=== PATIENT | female | born 1985 | race Caucasian/White ===

== ENCOUNTER 2020-04-08 11:44 | Emergency (ER) | payer OTHER, SELFPAY ==
[2020-04-08 13:07] VITALS: BP 131/82; PULSE 83; RESP 16; TEMP 37.6; O2SAT 100; BMI 27.4
--- NOTE | 2020-04-08 13:15 | XR_ITS ---
EXAMINATION: XR CHEST CLINICAL INFORMATION: Shortness of breath. COMPARISON: None TECHNIQUE: Frontal view of the chest was obtained. FINDINGS: No significant abnormality is noted involving the heart, lungs, mediastinum, bony thorax or soft tissues. XR/XR chest 1V IMPRESSION: No acute cardiopulmonary process.
--- NOTE | 2020-04-08 13:24 | ED.SOB ---
HPI - SOB/Dyspnea General Chief Complaint: Dyspnea Stated Complaint: sob Time Seen by Provider: 04/08/20 13:14 Source: patient Mode of arrival: ambulatory Limitations: no limitations History of Present Illness HPI Narrative: 34 y/o female with no PMH presenting with chest tightness and difficulty breathing since last night. She was seen at [facility] last night/this morning, reportedly had blood work done and was tested for COVID, results still pending. She states she has these episodes of feeling like her head is on fire, she is very short of breath and feels generally unwell. She described chest tightness only present with deep inspiration. She denies cough, sick contacts, abd pain, N/V/D, urinary symptoms. MD elicited complaint: shortness of breath Onset (ago): day(s) (1) Timing: intermittent Severity: moderate Exacerbating factors: inspiration Relieving factors: cool air Associated symptoms: pain with inspiration and sense of impending doom Treatment prior to arrival: none Related Data Previous Rx's Medication Instructions Recorded albuterol sulfate 2 puff INHALATION Q6H PRN #6.7 g 04/08/20 naproxen 500 mg PO BID PRN #20 tab 04/08/20 Allergies Allergy/AdvReac Type Severity Reaction Status Date / Time clindamycin Allergy Rash Verified 04/08/20 13:11 Latex, Natural Rubber Allergy Facial Verified 04/08/20 13:11 Swelling Review of Systems Review of Systems: Constitutional: + Fever, + Chills ENT/Mouth: No sore throat, No Rhinorrhea, No Swallowing Difficulty Eyes: No Eye Pain, No Swelling, No Redness Cardiovascular: + Chest Pain, + SOB, No Orthopnea, No Edema Respiratory: No Cough, No Sputum, No Wheezing, + dyspnea Gastrointestinal: No Nausea, No Vomiting, No Diarrhea, No abdominal Pain Genitourinary: No Dysuria, No Urinary Frequency, No Hematuria Musculoskeletal: No joint pain, + Myalgias Skin: No Skin Lesions, No rash Neuro: No Weakness, No Numbness, No Dizziness, + Headache Psych: + Anxiety/Panic, No Depression Heme/Lymph: No Bruising, No Lymphadenopathy Endocrine: No Polyuria, No Polydipsia PMFSH Past Medical History Attestation statement: The following information was validated with the patient. Medical History Patient denies significant medical history Social History Social History Advance Directives: No Advance Directives Information Provided: No Physical Exam Vital Signs: Vital Signs: Last Vital Signs Temp 99.7 F 04/08/20 13:07 Pulse 83 04/08/20 13:07 Resp 16 04/08/20 13:07 BP 131/82 04/08/20 13:07 Pulse Ox 100 04/08/20 13:07 Body Mass Index 27.4 Appearance: Alert. Oriented X3. No acute distress. Anxious Eyes: Pupils equal, round and reactive to light. ENT: Pharynx normal. Neck: Normal inspection. Neck supple. CVS: Normal heart rate and rhythm. Pulses normal. Respiratory: No respiratory distress. Breath sounds normal. Speaking in full sentences. Abdomen: Soft and nontender. +BS x4 Skin: Skin warm and dry. Normal skin color. Normal skin turgor. No rashes. Extremities: No lower extremity edema. Neuro: Oriented X 3. No motor deficit. No sensory deficit. Course Course Course Narrative: 34 y/o healthy female presenting with diffiuclty breathing and chest tightness since last night. Recently evaluated at [facility] - attempting to get records now. She is saying she is having a hard time breathing, speaking in full sentences. SpO2 99% and lungs are clear. She wants to be in room, out of the hallway and wants to be evaluated for everything. CXR is normal. Will get basic blood work and resp panel. She is in no distress and appears well. Doubt PE, no risk factors and no hypoxia or tachycardia. PERC score is 0. Reevaluation(s) Reevaluation #1: Workup is unremakrable including resp panel, CXR, EKG, troponin, CBC and chemistry. Records from other ER's were reviewed - she has been to 3 ERs with the same complaints and negative workup. It is suspected that her subjective difficulty breathing is anxiety related. She is vitally stable and stable for discharge. Reevaluation #2: Patient is refusing to leave the emergency department. She says she cannot go home with chest pain and not feeling good. She is requesting admission to the hospital. Discussed admission criteria and how she does not meet criteria for admission. It was discussed at length that she is medically cleared for discharge and she continues to refuse to leave. Will have [facility]N evaluate her for anxiety and mental health evaluation. Reevaluation #3: Patient briefly spoke with CARE team SW and admitted to increased life stressors and anxiety and then quickly stated her problems were medical and she didn't want to argue. She would not engage in full mental health evaluation. Dr. Hyde discussed results with patient and again how no admission is indicated at this time. She is now agreeable to discharge and states she will go to another hospital for further evaluation. She is stable for discharge. Consultations Consultation #1: CARE team MDM - SOB/Dyspnea Lab Data Attestation: I reviewed the patient's lab results. Result diagrams: 04/08/20 14:24 04/08/20 14:24 Labs: Lab Results 04/08/20 04/08/20 04/08/20 Range/Units 14:18 14:23 14:23 WBC (4.8-10.8) X10*3/uL RBC (4.20-5.50) X10*6/uL Hgb (12.0-16.0) g/dl Hct (37-47) % MCV (80-98) fL MCH (27.0-33.0) pg MCHC (31.0-35.0) g/dl RDW (11.0-16.0) % Plt Count (160-400) X10*3/uL MPV (9.4-12.3) fL Immature Gran % (Auto) (0.0-0.4) % Neut % (Auto) (45-73) % Lymph % (Auto) (20-40) % Wayne % (Auto) (2-11) % Eos % (Auto) (0-4) % Baso % (Auto) (0-2) % Lymph # (Auto) (1.2-4.9) X10*3/uL Wayne # (Auto) (0.1-1.2) X10*3/uL Eos # (Auto) (0.0-0.4) X10*3/uL Baso # (Auto) (0.0-0.2) X10*3/uL Abs Immat Gran (auto) (0.00-0.03) X10*3/uL Absolute Neuts (auto) (2.0-8.3) X10*3/uL Absolute Nucleated RBC (0.0-0.012) X10*3/uL Nucleated RBC % (auto) (0.0-0.2) /100WBC Hold Blue Top SEE NOTE Sodium (135-145) mmol/L Potassium (3.3-5.1) mmol/l Chloride (96-108) mmol/L Carbon Dioxide (22-29) mmol/L Anion Gap (12-20) BUN (9-16) mg/dL Creatinine (0.5-1.4) mg/dL Estim Creat Clear Calc Estimated GFR Random Glucose (60-115) mg/dL Calcium (8.4-10.2) mg/dL Magnesium (1.6-2.6) mg/dL Troponin I High Sens (<3.5-17.0) ng/L C-Reactive Protein 0.89 H (< or = 0.50) mg/dL Ethyl Alcohol mg/dL Coronavirus (PCR) NEGATIVE (Negative) Influenza Type A (PCR) NEGATIVE (Negative) Influenza Type B (PCR) NEGATIVE (Negative) RSV RNA Qual (PCR) NEGATIVE (Negative) 04/08/20 04/08/20 04/08/20 Range/Units 14:23 14:24 14:24 WBC 11.5 H (4.8-10.8) X10*3/uL RBC 4.82 (4.20-5.50) X10*6/uL Hgb 11.7 L (12.0-16.0) g/dl Hct 37.2 (37-47) % MCV 77.2 L (80-98) fL MCH 24.3 L (27.0-33.0) pg MCHC 31.5 (31.0-35.0) g/dl RDW 17.7 H (11.0-16.0) % Plt Count 517 H (160-400) X10*3/uL MPV 8.8 L (9.4-12.3) fL Immature Gran % (Auto) 0.5 H (0.0-0.4) % Neut % (Auto) 70.7 (45-73) % Lymph % (Auto) 20.1 (20-40) % Wayne % (Auto) 8.0 (2-11) % Eos % (Auto) 0.4 (0-4) % Baso % (Auto) 0.3 (0-2) % Lymph # (Auto) 2.3 (1.2-4.9) X10*3/uL Wayne # (Auto) 0.9 (0.1-1.2) X10*3/uL Eos # (Auto) 0.1 (0.0-0.4) X10*3/uL Baso # (Auto) 0.0 (0.0-0.2) X10*3/uL Abs Immat Gran (auto) 0.06 H (0.00-0.03) X10*3/uL Absolute Neuts (auto) 8.1 (2.0-8.3) X10*3/uL Absolute Nucleated RBC 0.000 (0.0-0.012) X10*3/uL Nucleated RBC % (auto) 0.0 (0.0-0.2) /100WBC Hold Blue Top Sodium 138 (135-145) mmol/L Potassium 3.6 (3.3-5.1) mmol/l Chloride 104 (96-108) mmol/L Carbon Dioxide 23 (22-29) mmol/L Anion Gap 15 (12-20) BUN 6 L (9-16) mg/dL Creatinine 0.57 (0.5-1.4) mg/dL Estim Creat Clear Calc 129.5 Estimated GFR > 60 Random Glucose 74 (60-115) mg/dL Calcium 9.3 (8.4-10.2) mg/dL Magnesium 2.2 (1.6-2.6) mg/dL Troponin I High Sens (<3.5-17.0) ng/L C-Reactive Protein (< or = 0.50) mg/dL Ethyl Alcohol < 10 mg/dL Coronavirus (PCR) (Negative) Influenza Type A (PCR) (Negative) Influenza Type B (PCR) (Negative) RSV RNA Qual (PCR) (Negative) 04/08/20 Range/Units 14:24 WBC (4.8-10.8) X10*3/uL RBC (4.20-5.50) X10*6/uL Hgb (12.0-16.0) g/dl Hct (37-47) % MCV (80-98) fL MCH (27.0-33.0) pg MCHC (31.0-35.0) g/dl RDW (11.0-16.0) % Plt Count (160-400) X10*3/uL MPV (9.4-12.3) fL Immature Gran % (Auto) (0.0-0.4) % Neut % (Auto) (45-73) % Lymph % (Auto) (20-40) % Wayne % (Auto) (2-11) % Eos % (Auto) (0-4) % Baso % (Auto) (0-2) % Lymph # (Auto) (1.2-4.9) X10*3/uL Wayne # (Auto) (0.1-1.2) X10*3/uL Eos # (Auto) (0.0-0.4) X10*3/uL Baso # (Auto) (0.0-0.2) X10*3/uL Abs Immat Gran (auto) (0.00-0.03) X10*3/uL Absolute Neuts (auto) (2.0-8.3) X10*3/uL Absolute Nucleated RBC (0.0-0.012) X10*3/uL Nucleated RBC % (auto) (0.0-0.2) /100WBC Hold Blue Top Sodium (135-145) mmol/L Potassium (3.3-5.1) mmol/l Chloride (96-108) mmol/L Carbon Dioxide (22-29) mmol/L Anion Gap (12-20) BUN (9-16) mg/dL Creatinine (0.5-1.4) mg/dL Estim Creat Clear Calc Estimated GFR Random Glucose (60-115) mg/dL Calcium (8.4-10.2) mg/dL Magnesium (1.6-2.6) mg/dL Troponin I High Sens < 3.5 (<3.5-17.0) ng/L C-Reactive Protein (< or = 0.50) mg/dL Ethyl Alcohol mg/dL Coronavirus (PCR) (Negative) Influenza Type A (PCR) (Negative) Influenza Type B (PCR) (Negative) RSV RNA Qual (PCR) (Negative) ECG Data Attestation: I personally reviewed and interpreted this ECG as follows: ECG interpretation date: 04/08/20 ECG interpretation time: 14:35 Interpretation: normal sinus rhythm, HR 79 bpm, normal QTc, normal KS interval. no ischemic changes. Discharge Plan Discharge Clinical Impression: Anxiety Patient Disposition: Home, Self-Care Instructions: Costochondritis (ED), Anxiety (ED) Additional Instructions: Your workup today in the Emergency Department was unremarkable. Your chest x-ray was normal. Your were tested for COVID-19, Influenza and RSV - all were NEGATIVE. You had a normal EKG. All blood work was normal. Your vitals signs were normal including normal respiratory rate and oxygen level. It is likely that your chest tightness and feeling of difficulty breathing are anxiety related. You also may have an acute viral syndrome that can explain your other symptoms. Take over the counter cold/flu medications as needed for your symptoms. Rest and stay hydrated. Follow up with your doctor this week. Prescriptions: New albuterol sulfate 90 mcg/actuation HFA aerosol inhaler 2 puff inhalation Q6H PRN (Reason: shortness of breath or wheezing) Qty: 6.7 RF: 0 naproxen 500 mg tablet 500 mg PO BID PRN (Reason: pain) Qty: 20 RF: 0
--- NOTE | 2020-04-08 14:04 | ECG_ITS ---
Test Reason : SOB Blood Pressure : / mmHG Vent. Rate : 079 BPM Atrial Rate : 079 BPM P-R Int : 130 ms QRS Dur : 086 ms QT Int : 382 ms P-R-T Axes : 043 043 027 degrees QTc Int : 438 ms Normal sinus rhythm Normal ECG No previous ECGs available Referred By: Beatriz Rogel Electronically Signed By:EULA URBINA
[2020-04-08 14:29] LABS: MANUAL DIFF FLAG NO
[2020-04-08 14:31] LABS: Basophils Percent Auto 0.3 % (0-2); Eosinophils Absolute Auto 0.1 X10*3/uL (0.0-0.4); Eosinophils Percent Auto 0.4 % (0-4); Hematocrit 37.2 % (37-47); Hemoglobin 11.7 g/dl (12.0-16.0); Imm Gran Abs Auto 0.06 X10*3/uL (0.00-0.03); Imm Gran Pct Auto 0.5 % (0.0-0.4); Lymphocytes Absolute Auto 2.3 X10*3/uL (1.2-4.9); Lymphocytes Percent Auto 20.1 % (20-40); Mean Corpuscular HGB Conc 31.5 g/dl (31.0-35.0); Mean Corpuscular Hemoglobin 24.3 pg (27.0-33.0); Mean Corpuscular Volume 77.2 fL (80-98); Mean Platelet Volume 8.8 fL (9.4-12.3); Monocytes Absolute Auto 0.9 X10*3/uL (0.1-1.2); Neutrophils Absolute Auto 8.1 X10*3/uL (2.0-8.3); Neutrophils Percent Auto 70.7 % (45-73); Platelet Count 517 X10*3/uL (160-400); Red Blood Count 4.82 X10*6/uL (4.20-5.50); Red Cell Distribution Width 17.7 % (11.0-16.0); White Blood Count 11.5 X10*3/uL (4.8-10.8)
[2020-04-08 15:10] LABS: Ethanol < 10 mg/dL
[2020-04-08 15:11] LABS: Troponin-I High Sensitivity < 3.5 ng/L (<3.5-17.0)
[2020-04-08 15:13] LABS: C Reactive Protein 0.89 mg/dL (< or = 0.50)
[2020-04-08 15:13] LABS: Anion Gap 15 (12-20); Blood Urea Nitrogen 6 mg/dL (9-16); Calcium 9.3 mg/dL (8.4-10.2); Carbon Dioxide 23 mmol/L (22-29); Chloride 104 mmol/L (96-108); Creatinine Clr Calc Pharmacy 129.5; Estimated Glomerular Filt Rate > 60; Glucose Random 74 mg/dL (60-115); Magnesium 2.2 mg/dL (1.6-2.6); Potassium 3.6 mmol/l (3.3-5.1); Sodium 138 mmol/L (135-145)
[2020-04-08 15:22] LABS: Influenza A PCR NEGATIVE (Negative); Influenza B PCR NEGATIVE (Negative); Resp Syncy Virus RNA Qual PCR NEGATIVE (Negative); SARS COV2 PCR INHOUSE NEGATIVE (Negative)
--- NOTE | 2020-04-08 16:55 | PC.NURSE ---
PROVIDER WOULD LIKE THIS PT TO BE SEEN BY CARE/BHN FOR ONGOING ANXIETY AND HYPER FOCUS ON HER CHEST PAIN PT HAS SEEN AND BEEN TREATED AT >2 FACILITIES FOR THE SAME PRESENTATION
== END 2020-04-08 17:25 | disposition home or self-care (01) ==
PROVIDERS: Physician Assistant; Emergency Provider Emergency Medicine Emergency Medical Services; PCP Internal Medicine
DX: F41.9 Anxiety disorder, unspecified (principal); Z20.828 Contact with and (suspected) exposure to other viral communicable diseases; M94.0 Chondrocostal junction syndrome [Tietze]; Z79.899 Other long term (current) drug therapy
CPT/HCPCS: 0241U; 36415; 71045; 80048; 80320; 83735; 84484; 85025; 86140; 93005; 99283; 99284

== ENCOUNTER 2020-04-08 19:10 | Emergency (ER) | payer SELFPAY ==
--- NOTE | 2020-04-08 | XR_ITS ---
EXAMINATION: XR CHEST CLINICAL INFORMATION: Chest pain COMPARISON: Chest x-ray earlier today at 1:16 PM TECHNIQUE: 2 views of the chest were obtained. FINDINGS: Cardiac silhouette is normal in size. The lungs are well aerated. There is no lobar consolidation. No pleural effusion or pneumothorax. No acute osseous abnormality. XR/XR chest 2V IMPRESSION: Stable examination demonstrating no acute pulmonary pathology.
[2020-04-08 20:31] VITALS: BP 119/84; PULSE 98; RESP 16; TEMP 36.8; O2SAT 99; BMI 26.5
--- NOTE | 2020-04-08 21:40 | PC.NURSE ---
Provider bedside with pt.
--- NOTE | 2020-04-08 21:44 | ED.CHESTPAIN ---
HPI - Chest Pain General Chief Complaint: Chest Pain Stated Complaint: chest pain/head pain Time Seen by Provider: 04/08/20 21:34 Source: patient and old records reviewed Mode of arrival: ambulatory Limitations: other (vague historian) History of Present Illness HPI narrative: has been seen 3 times recently for chest pain also at our facility today, no OCPs, had negative EKG, CXR, COVID, troponin - she comes back and states she has chest pain and wants more workup, my cousin had a PET scan she then talks in circles and becomes upset, blood is coming down the left side of my head. I will go to a different doctor to see what they will say. Patient is covered in numerous EKG stickers from other facilities, she also was writing in her journal which was very disorganized and not coherent from my view I asked if I could read it and she stated no and that she was leaving, I offered her to stay and be evaluated and see crisis but she refused, there was no mention of SI/HI. MD complaint: chest pain Onset (ago): day(s) (3) Timing of current episode: constant Prior episodes: No Onset: during rest and during exertion Pain location: left chest Pain radiation: none Severity: moderate Quality: sharp Relieving factors: nothing Exacerbating factors: movement Associated symptoms: other (her head is full and she feels it is hot) Treatment prior to arrival: none Related Data Previous Rx's Medication Instructions Recorded albuterol sulfate 2 puff INHALATION Q6H PRN #6.7 g 04/08/20 naproxen 500 mg PO BID PRN #20 tab 04/08/20 Allergies Allergy/AdvReac Type Severity Reaction Status Date / Time clindamycin Allergy Rash Verified 04/08/20 13:11 Latex, Natural Rubber Allergy Facial Verified 04/08/20 13:11 Swelling Review of Systems Review of Systems: ROS unable to be obtained due to agitation PMFSH Past Medical History Attestation statement: The following information was validated with the patient. Medical History Patient denies significant medical history Social History Social History (Updated 04/08/20 @ 21:48 by Michelle Hyde DO) Use of substances other than those prescribed or required for medical reasons: No Physical Exam Vital Signs: Vital Signs: Last Vital Signs Temp 98.2 F 12/30/20 20:31 Pulse 98 04/08/20 20:31 Resp 16 04/08/20 20:31 BP 119/84 04/08/20 20:31 Pulse Ox 99 04/08/20 20:31 Body Mass Index 26.5 Appearance: Alert. Oriented X3. No acute distress. writing in a journal that appears disorganized and words appeared illegible at times and repetitive Eyes: Pupils equal, round and reactive to light. ENT: Pharynx normal. Neck: Normal inspection. Neck supple. CVS: unable to examine Respiratory: No respiratory distress. Abdomen: No obvious trauma Skin: Skin warm and dry. Normal skin color. . Extremities: No lower extremity edema. Neuro: Oriented X 3. No motor deficit. Anxious MDM - Chest Pain MDM Narrative Medical decision making narrative: 34 yo female just seen here for chest pain - seems anxiety related, just had negative workup, asking for a PET scan - aware we cannot do that, became upset, unable to reach family - she states she is leaving, no mention of SI/HI Discharge Plan Discharge Clinical Impression: Atypical chest pain Patient Disposition: Home, Self-Care Instructions: Chest Pain (ED) Additional Instructions: return to ED for any worsening symptoms or concerns Prescriptions: No Action albuterol sulfate 90 mcg/actuation HFA aerosol inhaler 2 puff inhalation Q6H PRN (Reason: shortness of breath or wheezing) Qty: 6.7 RF: 0 naproxen 500 mg tablet 500 mg PO BID PRN (Reason: pain) Qty: 20 RF: 0 Referrals: Physician,Unknown [Primary Care Provider] - 2 days (please call your primary care doctor)
--- NOTE | 2020-04-08 21:46 | PC.NURSE ---
Dr Hyde at patient bedside as patient is refusing to leave. Patient had her journal which she was writing in which had very disorganized writing. Patient had long pauses when asked question regarding what testing she wanted done. Disorganized thoughts. Patient refused crisis and stated she had the right to go to another hospital. Patient has ekg stickers from different hospitals on her chest.
== END 2020-04-08 21:59 | disposition home or self-care (01) ==
LOC: HO.ED 21:51
PROVIDERS: Emergency Provider Emergency Medicine
DX: R07.89 Other chest pain (principal); F23 Brief psychotic disorder; Z79.899 Other long term (current) drug therapy
CPT/HCPCS: 71046; 99283

== ENCOUNTER 2020-04-08 22:12 | Inpatient (IN) | payer OTHER, SELFPAY ==
[2020-04-08 23:20] VITALS: BP 138/72; PULSE 80; RESP 18; TEMP 36.7; O2SAT 99; BMI 26.5
[2020-04-08 23:38] LABS: Glucose Urine UA NEG (NEG); Leukocyte Esterase Urine NEG (NEG); Nitrite Urine NEG (NEG); Specific Gravity - Urine >= 1.030 (1.005-1.025); Urine Blood NEG (NEG); Urine Ketones >=80 MG/DL (NEG); Urine Protein NEG (NEG-TRACE)
[2020-04-08 23:51] LABS: Appearance Urine HAZY; Color Urine DARK YELLOW; RBC Urine 0-2 /HPF (0); UACC CULT YES
[2020-04-08 23:52] LABS: Bacteria Urine TRACE /LPF; Mucus Urine 4+ /LPF; Squamous Epithelial Cell Urine 3+ /LPF
[2020-04-08 23:53] LABS: UPreg QC Valid YES; Urine Pregnancy NEGATIVE (NEGATIVE)
[2020-04-09] VITALS (8 sets, daily range): BP systolic 101–139; BP diastolic 81–95; PULSE 78–120; RESP 15–82; TEMP 36.2–37.1; O2SAT 95–99
--- NOTE | 2020-04-09 00:01 | MHC.CARE ---
This is pt's 3rd visit to the ED today, with somatic complaints of chest pain and difficulty breathing. Pt was at [facility] ED and [facility] ED yesterday for same reasons, and in both cases was medically cleared and escorted off the premises when pt continued to insist that there is something wrong and that she needs to be monitored. Records were requested from [facility], indicating that the clinical impression was anxiety. On pt's third presentation to our ED, pt reported that she is seeking both medical and psychological evaluation. This proposal writer spoke with pt to gather information and assess the best recommendation for evaluation and treatment. Pt presented as disorganized and responding to internal stimuli, was observed speaking quietly to herself, and had a vacant gaze and difficulty articulating sentences at times. Pt was perseverating on the time, and became anxious when her view of the nearest clock was obscured when the curtain to the room was closed. Pt reported that she has been feeling overwhelmed and anxious, however continues to disagree that her physical symptoms are caused by anxiety. Pt stated that she has a hx of inpt psych admissions at [place] and [facility], indicating that they were due to anxiety attacks. Given pt's presentation, she will be referred for [facility] crisis evaluation.
[2020-04-09 00:07] LABS: Amphetamine Screen Urine Not Detected (Not Detect); Barbiturates, Urine Not Detected (Not Detect); Benzodiazepines Screen Urine Not Detected (Not Detect); Cannabinoid Screen Urine Not Detected (Not Detect); Cocaine Screen Urine Not Detected (Not Detect); Opiate Screen Urine Not Detected (Not Detect); Phencyclidine Screen Urine Not Detected (Not Detect)
--- NOTE | 2020-04-09 01:23 | ED.PSYCH ---
HPI - Psych General Chief Complaint: Psychiatric Symptoms Stated Complaint: Crisis Time Seen by Provider: 04/08/20 23:13 Source: patient Mode of arrival: ambulatory Limitations: no limitations History of Present Illness HPI Narrative: 34-year-old female with prior history of psychosis requiring hospitalization at [facility] she has had psychiatric visits to [facility] in July were she was having auditory hallucinations admitted for acute psychosis subsequently had another visit there for psych purposes and also 1 in 2016. She has been going to multiple different ED is a in the recent several days escalating most recently here several times has had extensive workup in all these and no acute finding. She in fact was seen here earlier today for chest pain had a negative workup and seems fixated on her health. She re-presented this evening complaining of depression and wanting a ?full? psychiatric workup Patient seems very vague during interview very suspicious of her surroundings. She is not noted to be talking to herself questions or responding to internal stimuli. During my interview she denies SI or HI. Admits to vaguely being depressed. When asked her she was having auditory hallucination she initially said yes but quickly recanted this and stated she is ?a good Zoroastrianism?. Offers no medical complaints at this time. Patient was here again earlier this afternoon had a full workup that was negative. She denies SI or HI. MD complaint: feels depressed Exacerbating factors: none Treatments prior to arrival: none Related Data Previous Rx's Medication Instructions Recorded albuterol sulfate 2 puff INHALATION Q6H PRN #6.7 g 04/08/20 naproxen 500 mg PO BID PRN #20 tab 04/08/20 Allergies Allergy/AdvReac Type Severity Reaction Status Date / Time clindamycin Allergy Rash Verified 04/08/20 13:11 Latex, Natural Rubber Allergy Facial Verified 04/08/20 13:11 Swelling Review of Systems Review of Systems: Constitutional: No Weight loss, No Fever, No Chills, No Night Sweats, No Fatigue, No Malaise ENT/Mouth: No Hearing loss, No Ear Pain, No Nasal Congestion, No Sinus Pain, No Hoarseness, No sore throat, No Rhinorrhea, No Swallowing Difficulty Eyes: No Eye Pain, No Swelling, No Redness, No Foreign Body, No Discharge, No Vision Changes Cardiovascular: No Chest Pain, No SOB, No Dyspnea on Exertion, No Orthopnea, No Edema, No Palpitations Respiratory: No Cough, No Sputum, No Wheezing, No Smoke Exposure, No Dyspnea Gastrointestinal: No Nausea, No Vomiting, No Diarrhea, No Constipation, No abdominal Pain, No Hematochezia, No Melena Genitourinary: no irregular bleeding, No Dysuria, No Urinary Frequency, No Hematuria, No Urinary Incontinence, No Urgency, No Flank Pain Musculoskeletal: No joint pain, No Myalgias, No Joint Swelling Skin: No Skin Lesions, No rash Neuro: No Weakness, No Numbness, No Paresthesias, No Loss of Consciousness, No Dizziness, No Headache Psych: As noted in HPI Heme/Lymph: No Bruising, No Bleeding,No Lymphadenopathy Endocrine: No Polyuria, No Polydipsia, No Temperature Intolerance Yes all other systems are reviewed and are negative [facility] Past Medical History Medical History Patient denies significant medical history Social History Social History (Updated 04/08/20 @ 21:48 by Michelle Hyde DO) Advance Directives: No Physical Exam Vital Signs: Vital Signs: Last Vital Signs Temp 98.0 F 04/08/20 23:20 Pulse 80 04/08/20 23:20 Resp 18 04/08/20 23:20 BP 138/72 04/08/20 23:20 Pulse Ox 99 04/08/20 23:20 Body Mass Index 26.5 Reviewed Const: Other: Vague and suspicious of her surroundings General: cooperative; No acute distress or intoxicated appearing Nutritional Appearance: average body habitus Orientation/consciousness: patient oriented x3 HENMT: Head: Yes normal to inspection Ears: hearing grossly normal bilaterally Eyes: General: appearance normal, both eyes and all related structures Visual Lara: normal visual lara by confrontation Neck: Neck: Yes normal visual inspection, No positive Brudzinski's sign, No positive Kernig's sign and No tender Thyroid: Thyroid normal Chest: Chest palpation & inspection: normal inspection of the chest Resp: Effort & Inspection: normal respiratory effort Cardio: Jugular venous distension: no JVD Rhythm: regular rhythm Heart sounds: S1 normal heart sound present and S2 normal heart sound present GI: Inspection: Yes normal to inspection Percussion: Yes normal to percussion Auscultation: normal bowel sounds : General: Yes no CVA tenderness Back/Spine/Pelvis: Back: no CVA tenderness Skin: General skin exam: no rashes or lesions noted Neuro: General: patient oriented x3 Extrem: General: Yes normal to inspection Course Course Course Narrative: Interview 34-year-old female with known history of psychosis with auditory hallucinations admitted to [facility] in July has had increase and hospital visits for vague medical complaints seems to be responding to internal stimuli. Presents with vague complaint of depression but no suicidality. No illicit substance use. She had full medical workup here at this facility earlier in the day. Will recheck alcohol and U tox and obtain crisis evaluation. Reevaluation(s) Reevaluation #1: Evaluated Care team recommendation for inpatient level care. Bed search initiated Section 12 signed. MDM - Psych MDM Narrative Medical decision making narrative: 0200 Sign into night team pending placement. Differential Diagnosis Differential diagnosis: Likely acute psychosis, bipolar disorder, depression, post-traumatic stress disorder, mood disorder and schizoaffective disorder Lab Data Labs: Lab Results 04/08/20 04/08/20 Range/Units 23:29 23:29 Urine Color DARK YELLOW Urine Appearance HAZY Urine pH 6.0 (5.0-8.0) Ur Specific [place] >= 1.030 H (1.005-1.025) Urine Protein NEG (NEG-TRACE) MG/DL Urine Glucose (UA) NEG (NEG) MG/DL Urine Ketones >=80 (NEG) MG/DL Urine Blood NEG (NEG) Urine Nitrite NEG (NEG) Ur Leukocyte Esterase NEG (NEG) Urine RBC 0-2 (0) /HPF Urine WBC 5-9 H (0-4) /HPF Ur Squamous Epith Cells 3+ /LPF Urine Bacteria TRACE /LPF Urine Mucus 4+ /LPF Urine Yeast 1+ /HPF Urine Test NEGATIVE (NEGATIVE) Urine Opiates Screen Not Detected (Not Detect) Ur Barbiturates Screen Not Detected (Not Detect) Ur Phencyclidine Scrn Not Detected (Not Detect) Ur Amphetamines Screen Not Detected (Not Detect) U Benzodiazepines Scrn Not Detected (Not Detect) Urine Cocaine Screen Not Detected (Not Detect) U Marijuana (THC) Screen Not Detected (Not Detect) Discharge Plan Discharge Clinical Impression: Acute psychosis Prescriptions: No Action albuterol sulfate 90 mcg/actuation HFA aerosol inhaler 2 puff inhalation Q6H PRN (Reason: shortness of breath or wheezing) Qty: 6.7 RF: 0 naproxen 500 mg tablet 500 mg PO BID PRN (Reason: pain) Qty: 20 RF: 0
--- NOTE | 2020-04-09 02:56 | MHC.CARE ---
N unable to provide a clinician to evaluate pt until the following day. CARE team obtained collateral information from N re: past evaluations, then completed evaluation with pt. Disposition is for inpt psychiatric placement. ED provider is in agreement.
[2020-04-09 12:45] LABS: Influenza A PCR NEGATIVE (Negative); Influenza B PCR NEGATIVE (Negative); Resp Syncy Virus RNA Qual PCR NEGATIVE (Negative); SARS COV2 PCR INHOUSE NEGATIVE (Negative)
--- NOTE | 2020-04-09 13:55 | PC.NURSE ---
nurse to nurse given to uzma (rn). pt aware of plan of care for transfer to the pod, bed 01.
--- NOTE | 2020-04-09 15:16 | PC.NURSE ---
Pt complaining of dizziness and shortness of breathe. VSS, oxygen levels have been 98-99%. Pt asking to go back to main ED, states she felt better there. Verbal reassurance, pt fixated on returning to main ED.
--- NOTE | 2020-04-09 19:16 | PC.NURSE ---
Report received. PT came up to the nurse's station and complained of chest pain and shortness of breath. PT's vitals assessed and found to be slightly hypertensive and tachycardic. Provider notified and EKG was ordered.
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
[2020-04-10 06:00] VITALS: BP 126/86; PULSE 118; RESP 18; TEMP 36.3; O2SAT 99
[2020-04-10 11:00] VITALS: PULSE 88
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
[2020-04-10 17:25] VITALS: BP 127/82; PULSE 95; TEMP 36.3
[2020-04-10 23:00] VITALS: BP 120/69; PULSE 95; TEMP 36.6; O2SAT 99
[2020-04-11 04:30] VITALS: BP 114/79; PULSE 83; RESP 16; TEMP 36.8; O2SAT 100
--- NOTE | 2020-04-11 13:06 | HO.PSYCHPN ---
Subjective Subjective Date of Service: 04/11/20 Reason For Visit: Crisis Subjective Notes: Section 12B Interim History: Pt doesn't want to continue to argue- struggling with being on psychiatric unit wants to be on medical floor and have PET scan for chest pain-despite negaitve medical work up which does not indicated further investigation at this time nursing report she slept in day and was up all night Medication Compliance: No Side effects from medications: No Attending Groups: Intermittent Review of Systems Acute medical concerns: No Medical Review of Systems: unchanged Mental Status Exam Mental Status Exam Patient Appearance: Well Grooomed Patient Orientation: Person, Place, Time and Situation Level of Consciousness: Awake and Appropriate Diagnostics Vital Signs (24Hr): Vital Signs - 24 hr 04/10/20 17:25 04/10/20 23:00 04/11/20 04:30 Temperature 97.4 F 97.9 F 98.2 F Pulse Rate 95 95 83 Respiratory Rate 16 Blood Pressure 127/82 120/69 114/79 Pulse Oximetry 99 100 Body Mass Index 26.5 Medications Medications Current Medications Generic Name Dose Route Start Last Admin Trade Name Freq PRN Reason Stop Dose Admin Acetaminophen 650 mg 04/09/20 19:03 Acetaminophen 325 Mg Tablet PO Q6H PRN Headache/Pain Mild Scale (1-3) Al Hydroxide/Mg Hydroxide 30 ml 04/09/20 19:03 Magnesium Hydrox/Alum Hydrox 30 Ml Oral.Susp PO Q6H PRN Heartburn/Nausea Hydroxyzine HCl 25 mg 04/09/20 19:03 Hydroxyzine Hcl 25 Mg Tablet PO BEDTIME PRN Anxiety Lorazepam 0.5 mg 04/09/20 19:07 Lorazepam 0.5 Mg Tablet PO Q6H PRN Anxiety Magnesium Hydroxide 30 ml 04/09/20 19:03 Milk Of Magnesia 30 Ml Oral.Susp PO DAILY PRN Constipation Olanzapine 5 mg 04/09/20 19:07 Olanzapine Odt 10 Mg Tab.Rapdis TRANSLINGU RQ6H PRN Psychosis Trazodone HCl 50 mg 04/09/20 19:03 Trazodone Hcl 50 Mg Tablet PO BEDTIME PRN Insomnia Allergies Allergies Allergy/AdvReac Type Severity Reaction Status Date / Time clindamycin Allergy Rash Verified 04/08/20 13:11 Latex, Natural Rubber Allergy Facial Verified 04/08/20 13:11 Swelling Assessment & Plan Assessment & Plan (1) Acute psychosis: Status: Acute Code(s): F23 - Brief psychotic disorder Assessment and Plan: tried to educate pt about anxiety/psychosis and medications that might relieve thoughts anxiety pt doesn not understand and has no insight further hospitalization needed because pt will recurrently present thinking there is something wrong. Also unable to take care of herself due to impaired judgement likely busby of rehospiatilziation Greater than 50% of the session was spent on counseling and/or coordination of care
[2020-04-11 18:00] VITALS: BP 110/75; PULSE 124; TEMP 36.3
[2020-04-12 04:40] VITALS: BP 115/82; PULSE 91; RESP 16; TEMP 37.1; O2SAT 100
--- NOTE | 2020-04-12 13:06 | HO.PSYCHPN ---
Subjective Subjective Date of Service: 04/12/20 Reason For Visit: Crisis Subjective Notes: Section 12B Interim History: Pt wants to go home to mother and granmother, reports she will no longer pursue treatment for chest pain - which has had no findings requesting PET scan- Continues to not sleep at night but will not discuss, will also not discussed outpatient care No interest in medications for sleep or anxiety and has not insight into her thought disorder Medication Compliance: No Side effects from medications: No Attending Groups: No Review of Systems Acute medical concerns: No Review of Systems: no longer complainging of chest pain not taking fluids in day - shift- taken apparently does in pm shift Mental Status Exam Mental Status Exam Patient Appearance: Well Grooomed Patient Orientation: Person, Place, Time and Situation Level of Consciousness: Awake Patient Behavior: Guarded and Resistive to Care Mood Description: Calm Affect Description: Calm Patient Cognition Impaired: No Ability to Follow Directions: Fair Speech Pattern: Clear Hallucinations: None Delusions: Present (?somatic delusion) Thought Process: Distracted Thought Content: positive for Evasive Depressive Symptoms: Insomnia, Diff. Making Decisions and Changes in Appetite Judgement: Poor Diagnostics Vital Signs (24Hr): Vital Signs - 24 hr 04/11/20 18:00 04/12/20 04:40 Temperature 97.4 F 98.8 F Pulse Rate 124 H 91 Respiratory Rate 16 Blood Pressure 110/75 115/82 Pulse Oximetry 100 Body Mass Index 26.5 Medications Medications Current Medications Generic Name Dose Route Start Last Admin Trade Name Freq PRN Reason Stop Dose Admin Acetaminophen 650 mg 04/09/20 19:03 Acetaminophen 325 Mg Tablet PO Q6H PRN Headache/Pain Mild Scale (1-3) Al Hydroxide/Mg Hydroxide 30 ml 04/09/20 19:03 Magnesium Hydrox/Alum Hydrox 30 Ml Oral.Susp PO Q6H PRN Heartburn/Nausea Hydroxyzine HCl 25 mg 04/09/20 19:03 Hydroxyzine Hcl 25 Mg Tablet PO BEDTIME PRN Anxiety Lorazepam 0.5 mg 04/09/20 19:07 Lorazepam 0.5 Mg Tablet PO Q6H PRN Anxiety Magnesium Hydroxide 30 ml 04/09/20 19:03 Milk Of Magnesia 30 Ml Oral.Susp PO DAILY PRN Constipation Olanzapine 5 mg 04/09/20 19:07 Olanzapine Odt 10 Mg Tab.Rapdis TRANSLINGU RQ6H PRN Psychosis Trazodone HCl 50 mg 04/09/20 19:03 Trazodone Hcl 50 Mg Tablet PO BEDTIME PRN Insomnia Allergies Allergies Allergy/AdvReac Type Severity Reaction Status Date / Time clindamycin Allergy Rash Verified 04/08/20 13:11 Latex, Natural Rubber Allergy Facial Verified 04/08/20 13:11 Swelling Assessment & Plan Assessment & Plan (1) Acute psychosis: Status: Acute Code(s): F23 - Brief psychotic disorder Assessment and Plan: less thought blocked, unwilling to engage in psychiatric treatment, collateral coordination of care needed to know ture risk to self care/judegment Greater than 50% of the session was spent on counseling and/or coordination of care
[2020-04-12 18:00] VITALS: BP 112/79; PULSE 113; TEMP 36.4
--- NOTE | 2020-04-13 | CT_ITS ---
EXAMINATION: CT HEAD WITHOUT CONTRAST CLINICAL INFORMATION: Fall. Head injury. COMPARISON: None. TECHNIQUE: Contiguous helical images of the brain were obtained without IV contrast. Multiplanar reconstructions were performed. DLP: 630 mGy-cm. FINDINGS: There are no pathologic extra-axial fluid collections. The lateral, third, fourth ventricles are nondilated and concordant with the appearance of the sulci. There is no evidence for acute intraparenchymal hemorrhage or infarct. There is neither mass nor mass effect. There is no shift of midline structures. The paranasal sinuses and mastoid air cells are clear. There are no osseous lesions. CT/CT head/brain wo con IMPRESSION: No evidence for acute intracranial injury. Automated exposure control (Care Dose) Adjustment of the mA and/or kv according to patient size (this includes techniques or standardized protocols for targeted exams where dose is matched to indication / reason for exam; i.e. extremities or head).
[2020-04-13 04:50] VITALS: BP 109/77; RESP 88; TEMP 36.6; O2SAT 100
--- NOTE | 2020-04-13 17:44 | P.PNPSI_ITS ---
Subjective Subjective Date of Service: 04/13/20 Reason For Visit: Crisis Subjective Notes: Section 12B Interim History: Pt allowed a brief meeting. States there is no psychiatric issue to be worked with or treated. States she has discussed symptoms with primary care physician in the past and the only issue she has is being away from her son. Appears pre-occupied at times. Guarded. Asking for discharge. Medication Compliance: No (declines) Side effects from medications: No Attending Groups: No Review of Systems Reports behavioral changes Psychiatric: Reports as per HPI, Reports abnormal sleep pattern, Reports anxiety and Reports behavioral changes Mental Status Exam Mental Status Exam Patient Appearance: Well Grooomed and Fatigued Patient Orientation: Person, Place, Time and Situation Level of Consciousness: Awake and Alert Patient Behavior: Appropriate, Guarded, Talkative and Suspicious (preoccupied) Mood Description: Calm, Suspicious, Withdrawn, Constricted and Apprehensive Affect Description: Constricted Patient Cognition Impaired: No Ability to Follow Directions: Fair Speech Pattern: Spontaneous Speech Memory Description: Remote Impaired Hallucinations: None (denies) Delusions: Present (Question of somatic delusions) Thought Process: Distracted (preoccupied at times) and Goal Oriented (focused on discharge) Thought Content: positive for [place] and positive for Circumstantial Depressive Symptoms: Insomnia, Diff. Making Decisions and Difficulty Sleeping Judgement: Poor Diagnostics Vital Signs (24Hr): Vital Signs - 24 hr 04/12/20 18:00 04/13/20 04:50 Temperature 97.6 F 97.9 F Pulse Rate 113 H Respiratory Rate 88 H Blood Pressure 112/79 109/77 Pulse Oximetry 100 Body Mass Index 26.5 Medications Medications Current Medications Generic Name Dose Route Start Last Admin Trade Name Freq PRN Reason Stop Dose Admin Acetaminophen 650 mg 04/09/20 19:03 Acetaminophen 325 Mg Tablet PO Q6H PRN Headache/Pain Mild Scale (1-3) Al Hydroxide/Mg Hydroxide 30 ml 04/09/20 19:03 Magnesium Hydrox/Alum Hydrox 30 Ml Oral.Susp PO Q6H PRN Heartburn/Nausea Hydroxyzine HCl 25 mg 04/09/20 19:03 Hydroxyzine Hcl 25 Mg Tablet PO BEDTIME PRN Anxiety Lorazepam 0.5 mg 04/09/20 19:07 Lorazepam 0.5 Mg Tablet PO Q6H PRN Anxiety Magnesium Hydroxide 30 ml 04/09/20 19:03 Milk Of Magnesia 30 Ml Oral.Susp PO DAILY PRN Constipation Olanzapine 5 mg 04/09/20 19:07 Olanzapine Odt 10 Mg Tab.Rapdis TRANSLINGU RQ6H PRN Psychosis Trazodone HCl 50 mg 04/09/20 19:03 Trazodone Hcl 50 Mg Tablet PO BEDTIME PRN Insomnia Allergies Allergies Allergy/AdvReac Type Severity Reaction Status Date / Time clindamycin Allergy Rash Verified 04/08/20 13:11 Latex, Natural Rubber Allergy Facial Verified 04/08/20 13:11 Swelling Assessment & Plan Assessment & Plan (1) Acute psychosis: Status: Acute Code(s): F23 - Brief psychotic disorder Assessment and Plan: -Pt declines intervention at this time. Greater than 50% of the session was spent on counseling and/or coordination of care Patient educated on: medication risk/benefits and therapeutic strategies Informed Consent: further education needed Reason for contiued inpatient stay Substantial Risk for: inability to function and rapid decompensation
[2020-04-13 18:00] VITALS: BP 128/90; PULSE 90; TEMP 36.8
[2020-04-13 21:15] VITALS: BP 131/87; PULSE 89; RESP 16; O2SAT 100
[2020-04-13 22:31] VITALS: BP 113/77; PULSE 91; O2SAT 100
[2020-04-13 22:32] LABS: Basophils Absolute Auto 0.1 X10*3/uL (0.0-0.2); Basophils Percent Auto 0.5 % (0-2); Eosinophils Absolute Auto 0.1 X10*3/uL (0.0-0.4); Hematocrit 39.1 % (37-47); Hemoglobin 12.1 g/dl (12.0-16.0); Imm Gran Abs Auto 0.05 X10*3/uL (0.00-0.03); Imm Gran Pct Auto 0.5 % (0.0-0.4); Lymphocytes Absolute Auto 1.4 X10*3/uL (1.2-4.9); Lymphocytes Percent Auto 13.8 % (20-40); MANUAL DIFF FLAG NO; Mean Corpuscular HGB Conc 30.9 g/dl (31.0-35.0); Mean Corpuscular Hemoglobin 24.3 pg (27.0-33.0); Mean Corpuscular Volume 78.5 fL (80-98); Mean Platelet Volume 9.1 fL (9.4-12.3); Monocytes Absolute Auto 0.8 X10*3/uL (0.1-1.2); Monocytes Percent Auto 7.9 % (2-11); Neutrophils Absolute Auto 7.8 X10*3/uL (2.0-8.3); Neutrophils Percent Auto 76.3 % (45-73); Platelet Count 568 X10*3/uL (160-400); Red Blood Count 4.98 X10*6/uL (4.20-5.50); Red Cell Distribution Width 17.9 % (11.0-16.0); White Blood Count 10.2 X10*3/uL (4.8-10.8)
[2020-04-13 23:08] LABS: Anion Gap 12 (12-20); Blood Urea Nitrogen 6 mg/dL (9-16); Carbon Dioxide 31 mmol/L (22-29); Chloride 100 mmol/L (96-108); Creatinine Clr Calc Pharmacy 117.2; Estimated Glomerular Filt Rate > 60; Potassium 3.6 mmol/l (3.3-5.1); Sodium 139 mmol/L (135-145)
--- NOTE | 2020-04-13 23:19 | PC.NURSE ---
Patient was in the kitchen when she fell and hit her head arond 2114. Patient was prompted several times prior to go to her room and get rest, for she was nodding off and repeatedly closing her eyes. However, she declined to do so. The fall was unwitnessed by any staff. However, it was definitely heard. 514 witnessed her fall and described her to be falling asleep and her body just kept going lower and lower and then bam! Patient got right up and was prompted to sit down. Vitals were taken and WNL. Denied any dizziness or nausea. She rated her pain a 8/10 on her right latter-day. TW lightly palpated for a lump - none noted. No bleeding. A neuro check was done by staff. The hospitalist was notified Dr. Lebron about the incident (2126) and ordered a CT scan w/out contrast and findings were WNL. Dr. Briones was notified of the incident (2134)- labs were ordered and neuro checks Q4 x 24 hr. Originally she was switched to 5 minute checks. However, patient has been difficult re-direct and wanting to sit in the milieu with everyone. I just feel so uncomfortable and need to sit with everyone . When asked what makes her feel uncomfortable she replied It is a spiritual and medical thing and would not elaborate further. Placed on 1:1 for safety. Nursing supervisor uranium processing notified of incident. Patient continues to nod off in a chair with her 1:1. Patient had not ate or drank anything for dinner this shift although prompted.
[2020-04-14 05:25] VITALS: BP 118/75; PULSE 105; RESP 16; TEMP 36.3; O2SAT 100
[2020-04-14 13:48] VITALS: BP 117/60; PULSE 96; TEMP 36.8; O2SAT 100
[2020-04-14 13:49] VITALS: BP 121/79; PULSE 91; TEMP 36.8; O2SAT 97
--- NOTE | 2020-04-14 16:15 | HO.PSYCHPN ---
Subjective Subjective Date of Service: 04/14/20 Reason For Visit: Crisis Subjective Notes: Section 12B Interim History: Pt fell last night after falling asleep in the chair. CAT Scan WNL. Continues with voodoo preoccupation. Poor sleep and appetite. Guarded, Quiet, Isolative-explains she wants to be at home with family, son-age 11 and mother. Documenting time in a journal. Refused to allow a call to her mother and refused to allow team to have mother's contact number. Pt's social worker aide offered to call with pt present, however, she continued to decline. Section XIIB expires 04/15/20. Refuses medications. Olanzapine scheduled for pt for this evening. Review of Systems Review of Systems Yes Unobtainable due to mental status Reports behavioral changes Psychiatric: Reports abnormal sleep pattern, Reports behavioral changes, Reports change in appetite and Reports paranoia Mental Status Exam Mental Status Exam Patient Appearance: Appropriate Patient Orientation: Person, Place and Situation Level of Consciousness: Alert Patient Behavior: Guarded, Passive, Suspicious, Anxious, Fearful, Resistive to Care, Avoidant, Fatigued and Good Eye Contact Mood Description: Suspicious, Withdrawn and Apprehensive Affect Description: Suspicious and Constricted Patient Cognition Impaired: Yes Ability to Follow Directions: Fair Speech Pattern: Spontaneous Speech Memory Description: Remote Impaired, Retrieval Specialist Impaired and Episodic Impaired Hallucinations: None (denies, however questionable) Delusions: Paranoid Ideation and Present Thought Process: Illogical and Evasive Thought Content: positive for [place], positive for Circumstantial, positive for Perseveration, positive for Evasive and positive for Hypochondriasis Depressive Symptoms: Insomnia, Difficulty Sleeping and Changes in Appetite Judgement: Poor Diagnostics Vital Signs (24Hr): Vital Signs - 24 hr 04/13/20 18:00 04/13/20 21:15 04/13/20 22:31 Temperature 98.3 F Pulse Rate 90 89 91 Respiratory Rate 16 Blood Pressure 128/90 H 131/87 113/77 Pulse Oximetry 100 100 04/14/20 05:25 04/14/20 13:48 04/14/20 13:49 Temperature 97.4 F 98.2 F 98.2 F Pulse Rate 105 H 96 91 Respiratory Rate 16 Blood Pressure 118/75 117/60 121/79 Pulse Oximetry 100 100 97 Body Mass Index 26.5 Labs Results: 04/13/20 22:24 04/13/20 22:24 Labs: Laboratory Results - last 48 hr 04/13/20 04/13/20 22:24 22:24 WBC 10.2 RBC 4.98 Hgb 12.1 Hct 39.1 MCV 78.5 L MCH 24.3 L MCHC 30.9 L RDW 17.9 H Plt Count 568 H MPV 9.1 L Immature Gran % (Auto) 0.5 H Neut % (Auto) 76.3 H Lymph % (Auto) 13.8 L [place] % (Auto) 7.9 Eos % (Auto) 1.0 Baso % (Auto) 0.5 Lymph # (Auto) 1.4 [place] # (Auto) 0.8 Eos # (Auto) 0.1 Baso # (Auto) 0.1 Abs Immat Gran (auto) 0.05 H Absolute Neuts (auto) 7.8 Absolute Nucleated RBC 0.000 Nucleated RBC % (auto) 0.0 Sodium 139 Potassium 3.6 Chloride 100 Carbon Dioxide 31 H Anion Gap 12 BUN 6 L Creatinine 0.62 Estim Creat Clear Calc 117.2 Estimated GFR > 60 Imaging Radiology Impressions: ITS Impressions Head CT 04/13/20 00:00 IMPRESSION: No evidence for acute intracranial injury. Automated exposure control (Care Dose) Adjustment of the mA and/or kv according to patient size (this includes techniques or standardized protocols for targeted exams where dose is matched to indication / reason for exam; i.e. extremities or head). Medications Medications Current Medications Generic Name Dose Route Start Last Admin Trade Name Freq PRN Reason Stop Dose Admin Acetaminophen 650 mg 04/09/20 19:03 Acetaminophen 325 Mg Tablet PO Q6H PRN Headache/Pain Mild Scale (1-3) Al Hydroxide/Mg Hydroxide 30 ml 04/09/20 19:03 Magnesium Hydrox/Alum Hydrox 30 Ml Oral.Susp PO Q6H PRN Heartburn/Nausea Hydroxyzine HCl 25 mg 04/09/20 19:03 Hydroxyzine Hcl 25 Mg Tablet PO BEDTIME PRN Anxiety Lorazepam 0.5 mg 04/09/20 19:07 Lorazepam 0.5 Mg Tablet PO Q6H PRN Anxiety Magnesium Hydroxide 30 ml 04/09/20 19:03 Milk Of Magnesia 30 Ml Oral.Susp PO DAILY PRN Constipation Olanzapine 5 mg 04/09/20 19:07 Olanzapine Odt 10 Mg Tab.Rapdis TRANSLINGU RQ6H PRN Psychosis Olanzapine 10 mg 04/14/20 21:00 Olanzapine 10 Mg Tablet PO BEDTIME EDGARDO Trazodone HCl 50 mg 04/09/20 19:03 Trazodone Hcl 50 Mg Tablet PO BEDTIME PRN Insomnia Allergies Allergies Allergy/AdvReac Type Severity Reaction Status Date / Time clindamycin Allergy Rash Verified 04/08/20 13:11 Latex, Natural Rubber Allergy Facial Verified 04/08/20 13:11 Swelling Assessment & Plan Assessment & Plan (1) Acute psychosis: Status: Acute Code(s): F23 - Brief psychotic disorder Assessment and Plan: Pt continues to refuse treatment. Section XIIB expires on 04/15/20. Will plan to file Greater than 50% of the session was spent on counseling and/or coordination of care Patient educated on: therapeutic strategies Informed Consent: does not understand Reason for contiued inpatient stay Substantial Risk for: inability to function, rapid decompensation and med/psych decompensation
[2020-04-14 18:00] VITALS: BP 123/87; PULSE 93; TEMP 36.2
[2020-04-15 06:00] VITALS: BP 129/93; PULSE 88; TEMP 36.7
[2020-04-15 08:00] VITALS: BMI 23.7
[2020-04-15 18:00] VITALS: BP 117/62; PULSE 85; TEMP 36.3
--- NOTE | 2020-04-15 18:51 | HO.PSYCHPN ---
Subjective Subjective Date of Service: 04/15/20 Reason For Visit: Crisis Interim History: Pt declines treatment. Filed for civil commitment today. Medication Compliance: No Side effects from medications: No (na) Attending Groups: No Review of Systems Review of Systems Yes Unobtainable due to mental status Reports behavioral changes Psychiatric: Reports abnormal sleep pattern, Reports behavioral changes, Reports change in appetite, Reports difficulty concentrating, Reports panic attacks (per mother's report to social group worker) and Reports paranoia Mental Status Exam Mental Status Exam Patient Appearance: Fatigued Patient Orientation: Person and Place Level of Consciousness: Awake Patient Behavior: Guarded, Suspicious, Anxious, Fearful and Confused Mood Description: Withdrawn, Fearful, Anxious and Apprehensive Affect Description: Constricted Patient Cognition Impaired: Yes Ability to Follow Directions: Poor Speech Pattern: Spontaneous Speech, Soft-Spoken and Cofabulation Memory Description: Remote Impaired Delusions: Being Controlled, Paranoid Ideation and Present (pentecostalism focus) Thought Content: positive for [place], positive for Circumstantial and positive for Perseveration Depressive Symptoms: Insomnia, Difficulty Sleeping and Changes in Appetite Judgement: Poor Diagnostics Vital Signs (24Hr): Vital Signs - 24 hr 04/15/20 06:00 Temperature 98.1 F Pulse Rate 88 Blood Pressure 129/93 H Body Mass Index 26.5 Labs Results: 04/13/20 22:24 04/13/20 22:24 Labs: Laboratory Results - last 48 hr 04/13/20 04/13/20 22:24 22:24 WBC 10.2 RBC 4.98 Hgb 12.1 Hct 39.1 MCV 78.5 L MCH 24.3 L MCHC 30.9 L RDW 17.9 H Plt Count 568 H MPV 9.1 L Immature Gran % (Auto) 0.5 H Neut % (Auto) 76.3 H Lymph % (Auto) 13.8 L [place] % (Auto) 7.9 Eos % (Auto) 1.0 Baso % (Auto) 0.5 Lymph # (Auto) 1.4 [place] # (Auto) 0.8 Eos # (Auto) 0.1 Baso # (Auto) 0.1 Abs Immat Gran (auto) 0.05 H Absolute Neuts (auto) 7.8 Absolute Nucleated RBC 0.000 Nucleated RBC % (auto) 0.0 Sodium 139 Potassium 3.6 Chloride 100 Carbon Dioxide 31 H Anion Gap 12 BUN 6 L Creatinine 0.62 Estim Creat Clear Calc 117.2 Estimated GFR > 60 Imaging Radiology Impressions: ITS Impressions Head CT 04/13/20 00:00 IMPRESSION: No evidence for acute intracranial injury. Automated exposure control (Care Dose) Adjustment of the mA and/or kv according to patient size (this includes techniques or standardized protocols for targeted exams where dose is matched to indication / reason for exam; i.e. extremities or head). Medications Medications Current Medications Generic Name Dose Route Start Last Admin Trade Name Freq PRN Reason Stop Dose Admin Acetaminophen 650 mg 04/09/20 19:03 Acetaminophen 325 Mg Tablet PO Q6H PRN Headache/Pain Mild Scale (1-3) Al Hydroxide/Mg Hydroxide 30 ml 04/09/20 19:03 Magnesium Hydrox/Alum Hydrox 30 Ml Oral.Susp PO Q6H PRN Heartburn/Nausea Hydroxyzine HCl 25 mg 04/09/20 19:03 Hydroxyzine Hcl 25 Mg Tablet PO BEDTIME PRN Anxiety Magnesium Hydroxide 30 ml 04/09/20 19:03 Milk Of Magnesia 30 Ml Oral.Susp PO DAILY PRN Constipation Olanzapine 5 mg 04/09/20 19:07 Olanzapine Odt 10 Mg Tab.Rapdis TRANSLINGU RQ6H PRN Psychosis Olanzapine 10 mg 04/14/20 21:00 04/14/20 22:31 Olanzapine 10 Mg Tablet PO Not Given BEDTIME EDGARDO Trazodone HCl 50 mg 04/09/20 19:03 Trazodone Hcl 50 Mg Tablet PO BEDTIME PRN Insomnia Allergies Allergies Allergy/AdvReac Type Severity Reaction Status Date / Time clindamycin Allergy Rash Verified 04/08/20 13:11 Latex, Natural Rubber Allergy Facial Verified 04/08/20 13:11 Swelling Assessment & Plan Assessment & Plan (1) Acute psychosis: Status: Acute Code(s): F23 - Brief psychotic disorder Greater than 50% of the session was spent on counseling and/or coordination of care Informed Consent: does not understand Reason for contiued inpatient stay Substantial Risk for: inability to function and rapid decompensation
[2020-04-16 06:00] VITALS: BP 116/64; PULSE 85; TEMP 36.3; O2SAT 98
[2020-04-16 07:00] VITALS: BMI 23.7
[2020-04-16 10:10] LABS: Folate 5.3 ng/mL (> or = 4.0); Vitamin B12 341 pg/mL (200-900)
[2020-04-16 11:48] LABS: Thyroid Stimulating Hormone 0.59 uIU/mL (0.32-4.0); Vitamin D 25-OH Total 11.2 ng/mL (>30)
[2020-04-16 16:52] VITALS: BP 125/75; PULSE 87; TEMP 36.5; O2SAT 100
--- NOTE | 2020-04-16 16:54 | P.PNPSI_ITS ---
Subjective Subjective Date of Service: 04/16/20 Reason For Visit: Delusions-somatic Interim History: Pt continues on 1:1. Visible in milieu, writing in her journal. No agitation, aggression. Sleep and Intake with some improvement. Asking to go home. Mandaeism focus. Medication Compliance: No Side effects from medications: No Attending Groups: No Review of Systems Cardiovascular: Reports chest pain (denies) Reports behavioral changes Psychiatric: Reports abnormal sleep pattern, Reports anxiety, Reports behavioral changes, Reports change in appetite and Reports hallucinations Mental Status Exam Mental Status Exam Patient Appearance: Appropriate Patient Orientation: Person, Place and Situation Level of Consciousness: Alert Patient Behavior: Guarded, Suspicious, Wandering, Anxious and Distractible Mood Description: Suspicious, Constricted, Anxious, Nervous and Apprehensive Affect Description: Constricted Patient Cognition Impaired: No Ability to Follow Directions: Fair Speech Pattern: Spontaneous Speech Memory Description: Remote Impaired Hallucinations: Auditory (some response to internal stimuli yet denies) Delusions: Paranoid Ideation and Present Thought Process: Illogical and Distracted Thought Content: positive for [place] and positive for Preoccupation Depressive Symptoms: Increased Anxiety, Insomnia, Difficulty Sleeping and Changes in Appetite Judgement: Poor Diagnostics Vital Signs (24Hr): Vital Signs - 24 hr 04/15/20 18:00 04/16/20 06:00 04/16/20 16:52 Temperature 97.4 F 97.4 F 97.7 F Pulse Rate 85 85 87 Blood Pressure 117/62 116/64 125/75 Pulse Oximetry 98 100 Body Mass Index 23.7 Labs Results: 04/13/20 22:24 04/13/20 22:24 Labs: Laboratory Results - last 48 hr 04/16/20 04/16/20 08:15 08:15 Vitamin B12 341 25-OH Vitamin D Total 11.2 Folate 5.3 TSH 0.59 Imaging Radiology Impressions: ITS Impressions Head CT 04/13/20 00:00 IMPRESSION: No evidence for acute intracranial injury. Automated exposure control (Care Dose) Adjustment of the mA and/or kv according to patient size (this includes techniques or standardized protocols for targeted exams where dose is matched to indication / reason for exam; i.e. extremities or head). Medications Medications Current Medications Generic Name Dose Route Start Last Admin Trade Name Freq PRN Reason Stop Dose Admin Acetaminophen 650 mg 04/09/20 19:03 Acetaminophen 325 Mg Tablet PO Q6H PRN Headache/Pain Mild Scale (1-3) Al Hydroxide/Mg Hydroxide 30 ml 04/09/20 19:03 Magnesium Hydrox/Alum Hydrox 30 Ml Oral.Susp PO Q6H PRN Heartburn/Nausea Hydroxyzine HCl 25 mg 04/09/20 19:03 Hydroxyzine Hcl 25 Mg Tablet PO BEDTIME PRN Anxiety Magnesium Hydroxide 30 ml 04/09/20 19:03 Milk Of Magnesia 30 Ml Oral.Susp PO DAILY PRN Constipation Olanzapine 5 mg 04/09/20 19:07 Olanzapine Odt 10 Mg Tab.Rapdis TRANSLINGU RQ6H PRN Psychosis Olanzapine 10 mg 04/14/20 21:00 04/15/20 21:31 Olanzapine 10 Mg Tablet PO Not Given BEDTIME EDGARDO Trazodone HCl 50 mg 04/09/20 19:03 Trazodone Hcl 50 Mg Tablet PO BEDTIME PRN Insomnia Allergies Allergies Allergy/AdvReac Type Severity Reaction Status Date / Time clindamycin Allergy Rash Verified 04/08/20 13:11 Latex, Natural Rubber Allergy Facial Verified 04/08/20 13:11 Swelling Assessment & Plan Assessment & Plan (1) Acute psychosis: Status: Acute Code(s): F23 - Brief psychotic disorder Assessment and Plan: -Continue 1:1 -Offer opportunity for rest, food, fluids, medications -Court date 04/21/20. Greater than 50% of the session was spent on counseling and/or coordination of care Informed Consent: does not understand Reason for contiued inpatient stay Substantial Risk for: harm to self, inability to function and rapid decompensation
[2020-04-17 06:00] VITALS: BP 119/78; PULSE 90; TEMP 36.3; O2SAT 100
--- NOTE | 2020-04-17 12:32 | HO.PSYCHPN ---
Subjective Subjective Date of Service: 04/17/20 Reason For Visit: Delusions-somatic Interim History: Team reports pt's intake and sleeping are improved. She continues to decline medications. She today is taken off 1:1 and started on 15 checks. Met with pt who reports she is ready to go home. She reports when she has a feeling she repents as she has been taught. We reviewed symptoms precipitating admission, rationale and concerns about her chest pain, asking for PET scans and medical tests. Denies current physical symptoms. Asking for AMA discharge-explained upcoming legal process. Pt talked with her disability attorney who also answered her questions. Court scheduled for 04/21/20. Medication Compliance: No Side effects from medications: No Attending Groups: No Review of Systems Review of Systems Yes all other systems are reviewed and are negative (denies all symptoms) Reports behavioral changes and Reports confusion Psychiatric: Reports abnormal sleep pattern, Reports anxiety, Reports behavioral changes, Reports change in appetite, Reports confusion, Reports auditory hallucinations and Reports hallucinations ( that is when I repent ) Mental Status Exam Mental Status Exam Patient Appearance: Appropriate Patient Orientation: Person, Place and Situation Level of Consciousness: Alert Patient Behavior: Guarded and Distractible Mood Description: Suspicious and Blunted Affect Description: Constricted Patient Cognition Impaired: No Ability to Follow Directions: Fair Speech Pattern: Spontaneous Speech Memory Description: Remote Impaired Hallucinations: None (denies, however at times appears to be responding to internal stimuli) Delusions: Present (anabaptism) Thought Process: Illogical and Distracted Thought Content: positive for Obsessional Thoughts (anabaptism focus), positive for Preoccupation, positive for Tangential and positive for Disorganized Depressive Symptoms: Increased Anxiety, Insomnia, Difficulty Sleeping and Changes in Appetite Abnormal Motor Activity Signs and Symptoms: Restlessness Judgement: Poor Diagnostics Vital Signs (24Hr): Vital Signs - 24 hr 04/16/20 16:52 04/17/20 06:00 Temperature 97.7 F 97.4 F Pulse Rate 87 90 Blood Pressure 125/75 119/78 Pulse Oximetry 100 100 Body Mass Index 23.7 Labs Results: 04/13/20 22:24 04/13/20 22:24 Labs: Laboratory Results - last 48 hr 04/16/20 04/16/20 08:15 08:15 Vitamin B12 341 25-OH Vitamin D Total 11.2 Folate 5.3 TSH 0.59 Imaging Radiology Impressions: ITS Impressions Head CT 04/13/20 00:00 IMPRESSION: No evidence for acute intracranial injury. Automated exposure control (Care Dose) Adjustment of the mA and/or kv according to patient size (this includes techniques or standardized protocols for targeted exams where dose is matched to indication / reason for exam; i.e. extremities or head). Medications Medications Current Medications Generic Name Dose Route Start Last Admin Trade Name Freq PRN Reason Stop Dose Admin Acetaminophen 650 mg 04/09/20 19:03 Acetaminophen 325 Mg Tablet PO Q6H PRN Headache/Pain Mild Scale (1-3) Al Hydroxide/Mg Hydroxide 30 ml 04/09/20 19:03 Magnesium Hydrox/Alum Hydrox 30 Ml Oral.Susp PO Q6H PRN Heartburn/Nausea Hydroxyzine HCl 25 mg 04/09/20 19:03 Hydroxyzine Hcl 25 Mg Tablet PO BEDTIME PRN Anxiety Magnesium Hydroxide 30 ml 04/09/20 19:03 Milk Of Magnesia 30 Ml Oral.Susp PO DAILY PRN Constipation Olanzapine 5 mg 04/09/20 19:07 Olanzapine Odt 10 Mg Tab.Rapdis TRANSLINGU RQ6H PRN Psychosis Olanzapine 10 mg 04/14/20 21:00 04/16/20 20:36 Olanzapine 10 Mg Tablet PO Not Given BEDTIME EDGARDO Trazodone HCl 50 mg 04/09/20 19:03 Trazodone Hcl 50 Mg Tablet PO BEDTIME PRN Insomnia Allergies Allergies Allergy/AdvReac Type Severity Reaction Status Date / Time clindamycin Allergy Rash Verified 04/08/20 13:11 Latex, Natural Rubber Allergy Facial Verified 04/08/20 13:11 Swelling Assessment & Plan Assessment & Plan (1) Acute psychosis: Status: Acute Code(s): F23 - Brief psychotic disorder Assessment and Plan: Pt continues to refuse medications. She is sleeping more and eating more. Change to 15 minute checks She asks for AMA discharge Civil Commitment hearing on 04/21/20. Greater than 50% of the session was spent on counseling and/or coordination of care
--- NOTE | 2020-04-17 12:41 | PC.NURSE ---
Pt ate half of her pizza on 04/17/20 at lunchtime.
[2020-04-17 16:15] VITALS: BP 115/79; PULSE 95; TEMP 36.8
[2020-04-18 06:00] VITALS: BP 122/76; PULSE 83; TEMP 36.6
--- NOTE | 2020-04-18 12:53 | HO.PSYCHPN ---
Subjective Subjective Date of Service: 04/19/20 Reason For Visit: Delusions-somatic Interim History: Pt seen, chart reviewed, case discussed with nursing staff Pt is polite, friendly, calm and cooperative. She says she is doing well and wants to go home. She denies any SI at all; she denies any AVH and no delusional content solicited. She says i have no thoughts of hurting myself and never have and is not sure why court. Pt choosing not take medications saying she has no need for them. Pt says she's sleeping well enough and while sleep could be better, she says it's nothing personal, but...it's hospital... i'd rather sleep in my own bed. REgarding recent past, pt says she was anxious over the recent medical symptoms; now that medical questions are no longer an issue, she says anxiety is resolved. panic attacks 4x per year or less Pt accepts that she will need to discuss disposition with primary team when they return. Medication Compliance: No Attending Groups: No Review of Systems Reports behavioral changes and Reports confusion Psychiatric: Reports behavioral changes and Reports confusion Mental Status Exam Mental Status Exam Narrative: Narrative: Patient Appearance: Appropriate Patient Orientation: Person, Place Level of Consciousness: Alert Patient Behavior: cooperative Mood Description: good Affect Description: congruent Patient Cognition Impaired: No Ability to Follow Directions: Fair Speech Pattern: Spontaneous Speech Thought Process: Goal oriented, linear, logical Thought Content: on missing family; discharge Judgement/insight: unclear Diagnostics Vital Signs (24Hr): Vital Signs - 24 hr 04/17/20 16:15 04/18/20 06:00 Temperature 98.2 F 97.8 F Pulse Rate 95 83 Blood Pressure 115/79 122/76 Body Mass Index 23.7 Labs Results: 04/13/20 22:24 04/13/20 22:24 Imaging Radiology Impressions: ITS Impressions Head CT 04/13/20 00:00 IMPRESSION: No evidence for acute intracranial injury. Automated exposure control (Care Dose) Adjustment of the mA and/or kv according to patient size (this includes techniques or standardized protocols for targeted exams where dose is matched to indication / reason for exam; i.e. extremities or head). Medications Medications Current Medications Generic Name Dose Route Start Last Admin Trade Name Freq PRN Reason Stop Dose Admin Acetaminophen 650 mg 04/09/20 19:03 Acetaminophen 325 Mg Tablet PO Q6H PRN Headache/Pain Mild Scale (1-3) Al Hydroxide/Mg Hydroxide 30 ml 04/09/20 19:03 Magnesium Hydrox/Alum Hydrox 30 Ml Oral.Susp PO Q6H PRN Heartburn/Nausea Hydroxyzine HCl 25 mg 04/09/20 19:03 Hydroxyzine Hcl 25 Mg Tablet PO BEDTIME PRN Anxiety Magnesium Hydroxide 30 ml 04/09/20 19:03 Milk Of Magnesia 30 Ml Oral.Susp PO DAILY PRN Constipation Olanzapine 5 mg 04/09/20 19:07 Olanzapine Odt 10 Mg Tab.Rapdis TRANSLINGU RQ6H PRN Psychosis Olanzapine 10 mg 04/14/20 21:00 04/17/20 22:05 Olanzapine 10 Mg Tablet PO Not Given BEDTIME EDGARDO Trazodone HCl 50 mg 04/09/20 19:03 Trazodone Hcl 50 Mg Tablet PO BEDTIME PRN Insomnia Allergies Allergies Allergy/AdvReac Type Severity Reaction Status Date / Time clindamycin Allergy Rash Verified 04/08/20 13:11 Latex, Natural Rubber Allergy Facial Verified 04/08/20 13:11 Swelling Assessment & Plan Impression: pt denies symptoms and says anxiety present prior to admission has since resolved. She asks for discharge but accepts she'll need to work this out with primary team as there is a court date pending. Pt in behavioral control on unit. dx: anxiety, unspecified Plan: no changes to tx plan at this time Greater than 50% of the session was spent on counseling and/or coordination of care
[2020-04-18 18:00] VITALS: BP 126/96; PULSE 80; TEMP 37
[2020-04-19 06:15] VITALS: BP 118/78; PULSE 82; RESP 16; TEMP 36.8; O2SAT 100
--- NOTE | 2020-04-19 14:00 | P.PNPSI_ITS ---
Subjective Subjective Date of Service: 04/19/20 Reason For Visit: Delusions-somatic Interim History: Pt seen; chart reviewed and case discussed vitals: WNL labs: no new labs Pt reports that she is not as decent as yesterday. She is vague at first and does not answer follow up questions, but then says she is sad because she misses her family. She denies any SI. Staff had mentioned to assembly instructions writer that last night, pt made some sexual innuendos to male staff on unit; assembly instructions writer asked this to patient who denied it and said not in any way did she make a such a comment and not sure what could have been misconstrued. Pt asked again about discharge but accepted that she will have to discuss with primary team when they return on monday. Pt politely shares that she is not in a mood to talk at the moment and is that ok? to which assembly instructions writer said it was. Medication Compliance: No Review of Systems Reports behavioral changes and Reports confusion Psychiatric: Reports behavioral changes and Reports confusion Mental Status Exam Mental Status Exam Narrative: Patient Appearance: Appropriate Patient Orientation: Person, Place and Situation Level of Consciousness: Alert Patient Behavior: Guarded Mood Description: not as decent Affect Description: Constricted Patient Cognition Impaired: No Ability to Follow Directions: Fair Speech Pattern: Spontaneous Speech Thought Process: Goal oriented, though a little latent today Thought Content: on missing family; discharge Judgement/insight: impaired Diagnostics Vital Signs (24Hr): Vital Signs - 24 hr 04/18/20 18:00 04/19/20 06:15 Temperature 98.6 F 98.3 F Pulse Rate 80 82 Respiratory Rate 16 Blood Pressure 126/96 H 118/78 Pulse Oximetry 100 Body Mass Index 23.7 Labs Results: 04/13/20 22:24 04/13/20 22:24 Imaging Radiology Impressions: ITS Impressions Head CT 04/13/20 00:00 IMPRESSION: No evidence for acute intracranial injury. Automated exposure control (Care Dose) Adjustment of the mA and/or kv according to patient size (this includes techniques or standardized protocols for targeted exams where dose is matched to indication / reason for exam; i.e. extremities or head). Medications Medications Current Medications Generic Name Dose Route Start Last Admin Trade Name Freq PRN Reason Stop Dose Admin Acetaminophen 650 mg 04/09/20 19:03 Acetaminophen 325 Mg Tablet PO Q6H PRN Headache/Pain Mild Scale (1-3) Al Hydroxide/Mg Hydroxide 30 ml 04/09/20 19:03 Magnesium Hydrox/Alum Hydrox 30 Ml Oral.Susp PO Q6H PRN Heartburn/Nausea Hydroxyzine HCl 25 mg 04/09/20 19:03 Hydroxyzine Hcl 25 Mg Tablet PO BEDTIME PRN Anxiety Magnesium Hydroxide 30 ml 04/09/20 19:03 Milk Of Magnesia 30 Ml Oral.Susp PO DAILY PRN Constipation Olanzapine 5 mg 04/09/20 19:07 Olanzapine Odt 10 Mg Tab.Rapdis TRANSLINGU RQ6H PRN Psychosis Olanzapine 10 mg 04/14/20 21:00 04/18/20 20:00 Olanzapine 10 Mg Tablet PO Not Given BEDTIME EDGARDO Trazodone HCl 50 mg 04/09/20 19:03 Trazodone Hcl 50 Mg Tablet PO BEDTIME PRN Insomnia Allergies Allergies Allergy/AdvReac Type Severity Reaction Status Date / Time clindamycin Allergy Rash Verified 04/08/20 13:11 Latex, Natural Rubber Allergy Facial Verified 04/08/20 13:11 Swelling Assessment & Plan Impression: pt denies symptoms and asks for discharge; she does not think she needs to be on psychiatric unit or take medications which she chooses not to take. plan: no changes to current tx plan Greater than 50% of the session was spent on counseling and/or coordination of care
[2020-04-19 18:00] VITALS: BP 112/72; PULSE 89; TEMP 36.7; O2SAT 99
[2020-04-20 05:20] VITALS: BP 125/81; PULSE 84; RESP 16; TEMP 36.8; O2SAT 100
[2020-04-20 10:30] VITALS: BP 132/78; BP 132/80
[2020-04-20 10:31] VITALS: BP 134/87
[2020-04-20 10:35] LABS: MANUAL DIFF FLAG NO
[2020-04-20 10:43] LABS: Basophils Percent Auto 0.4 % (0-2); Eosinophils Absolute Auto 0.1 X10*3/uL (0.0-0.4); Eosinophils Percent Auto 0.7 % (0-4); Hematocrit 35.9 % (37-47); Hemoglobin 10.9 g/dl (12.0-16.0); Imm Gran Abs Auto 0.05 X10*3/uL (0.00-0.03); Imm Gran Pct Auto 0.4 % (0.0-0.4); Lymphocytes Absolute Auto 1.6 X10*3/uL (1.2-4.9); Lymphocytes Percent Auto 14.2 % (20-40); Mean Corpuscular HGB Conc 30.4 g/dl (31.0-35.0); Mean Corpuscular Hemoglobin 24.2 pg (27.0-33.0); Mean Corpuscular Volume 79.6 fL (80-98); Mean Platelet Volume 9.5 fL (9.4-12.3); Monocytes Absolute Auto 0.5 X10*3/uL (0.1-1.2); Monocytes Percent Auto 4.5 % (2-11); Neutrophils Percent Auto 79.8 % (45-73); Platelet Count 502 X10*3/uL (160-400); Red Blood Count 4.51 X10*6/uL (4.20-5.50); Red Cell Distribution Width 17.7 % (11.0-16.0); White Blood Count 11.2 X10*3/uL (4.8-10.8)
[2020-04-20 11:15] LABS: TSH reflex Free T4 0.81 mIU/mL (0.32-4.0)
[2020-04-20 11:23] LABS: COVID-19 Test Negative (Negative); IDNOW Serial# 9DD0AD1C
[2020-04-20 11:31] LABS: Alanine Aminotransferase 9 U/L (0-31); Albumin Level 4.1 g/dL (3.5-5.0); Alkaline Phosphatase 75 U/L (39-117); Anion Gap 12 (12-20); Aspartate Amino Transferase 13 U/L (5-31); Bilirubin Total 0.2 mg/dL (0.0-1.0); Blood Urea Nitrogen 8 mg/dL (9-16); Calcium 9.1 mg/dL (8.4-10.2); Carbon Dioxide 27 mmol/L (22-29); Chloride 104 mmol/L (96-108); Creatinine Clr Calc Pharmacy 106.4; Estimated Glomerular Filt Rate > 60; Folate 5.5 ng/mL (> or = 4.0); Glucose Random 132 mg/dL (60-115); Potassium 3.7 mmol/l (3.3-5.1); Sodium 139 mmol/L (135-145); Total Protein 6.9 g/dL (6.5-8.0); Vitamin B12 276 pg/mL (200-900)
[2020-04-20 16:58] VITALS: BP 130/70; PULSE 79; TEMP 36.4
--- NOTE | 2020-04-20 19:14 | P.CONIM_ITS ---
History of Present Illness Data of Consult Service Date: 04/20/20 <BIRDIE Paredes - Last Filed: 04/20/20 19:31> Requesting physician: Marilyn Wilkerson <BIRDIE Paredes - Last Filed: 04/20/20 19:31> Primary Care Provider: Unknown Physician <BIRDIE Paredes - Last Filed: 04/20/20 19:31> HPI Reason for consult: Difficulty breathing, weakness <BIRDIE Paredes - Last Filed: 04/20/20 19:31> This is a 34-year-old female admitted to for management of psychosis. The hospitalists were asked to see her in consultation due to complaints of shortness of breath. per ED notes she has had workup in our ED as well as other [facility]. She reports intermittent shortness of breath which is not associated with exertion. In fact she reports improvement of her symptoms with exertion. She denies associated cough. <BIRDIE Paredes - Last Filed: 04/20/20 19:31> Review of Systems Review of Systems: Yes all other systems are reviewed and are negative <BIRDIE Paredes - Last Filed: 04/20/20 19:31> Constitutional: Constitutional: Denies chills and Denies fever(s) <BIRDIE Grant - Last Filed: 04/20/20 19:31> Cardiovascular: Cardiovascular: Reports dyspnea <BIRDIE Paredes - Last Filed: 04/20/20 19:31> Respiratory: Respiratory: Denies cough and Reports dyspnea <BIRDIE Paredes - Last Filed: 04/20/20 19:31> Neurologic: Reports behavioral changes and Reports confusion <BIRDIE Paredes - Last Filed: 04/20/20 19:31> Psychiatric: Psychiatric: Reports behavioral changes and Reports confusion <BIRDIE Paredes - Last Filed: 04/20/20 19:31> [facility] Medical History: Medical History Patient denies significant medical history <BIRDIE Paredes Last Filed: 01/11/21 19:31> Functional capacity: independent ambulation <BIRDIE Paredes - Last Filed: 04/20/20 19:31> Family history: reviewed and not pertinent <BIRDIE Paredes - Last Filed: 04/20/20 19:31> Social History: Social History Household Members: Other Household Members Other:: Grandmother Housing: Apartment Do you presently have visiting nurse or other home services: No Smoking Status: Never smoker Smoked in Last 30 Days: No Second Hand Smoke Exposure: Yes Use of substances other than those prescribed or required for medical reasons: No Last Used Substance: Unknown Currently Displaying Signs/Symptoms of Drug Intoxication Withdrawal: No Any prior treatment program specific to substance use: No Have you been hit, kicked, punched, or otherwise hurt by someone within the past year? If so, by whom?: No Do you feel safe in your current relationship?: No Current Relationship Is there a partner from a previous relationship who is making you feel unsafe now?: No Are you made to feel afraid or neglected: No Spiritual Healthcare Practices: N/A Pentecostal Healthcare Practices: N/A Cultural Healthcare Practices: unknown Advance Directives: No Do you have thoughts of harming others: None Do you have a plan to hurt others: No Plan Recently lost weight without trying: Yes service: No Sexual orientation: Decline to Answer <BIRDIE Paredes - Last Filed: 04/20/20 19:31> Meds Allergies/Adverse reactions: Allergies Allergy/AdvReac Type Severity Reaction Status Date / Time clindamycin Allergy Rash Verified 04/08/20 13:11 Latex, Natural Rubber Allergy Facial Verified 04/08/20 13:11 Swelling <BIRDIE Paredes - Last Filed: 04/20/20 19:31> Physical Exam Vital Signs and Narrative: Vital Signs: Last Vital Signs Temp 97.6 F 04/20/20 16:58 Pulse 79 04/20/20 16:58 Resp 16 04/20/20 05:20 BP 130/70 04/20/20 16:58 Pulse Ox 100 04/20/20 05:20 Body Mass Index 23.7 <BIRDIE Paredes - Last Filed: 04/20/20 19:31> Const: General: confusion <BIRDIE Paredes - Last Filed: 04/20/20 19:31> Nutritional Appearance: well nourished <BIRDIE Paredes - Last Filed: 04/20/20 19:31> Orientation/consciousness: confusion <BIRDIE Paredes - Last Filed: 04/20/20 19:31> HENMT: Head: Yes normocephalic and Yes atraumatic <BIRDIE Paredes - Last Filed: 04/20/20 19:31> Eyes: Sclerae: sclerae normal <BIRDIE Paredes - Last Filed: 04/20/20 19:31> Chest: Chest palpation & inspection: normal inspection of the chest <BIRDIE Paredes - Last Filed: 04/20/20 19:31> Resp: Effort & Inspection: normal respiratory effort and no respiratory distress <BIRDIE Paredes - Last Filed: 04/20/20 19:31> Auscultation: clear to auscultation bilaterally <BIRDIE Paredes - Last Filed: 04/20/20 19:31> Cardio: Rate: regular rate <BIRDIE Paredes - Last Filed: 04/20/20 19:31> Rhythm: regular rhythm <BIRDIE Paredes - Last Filed: 04/20/20 19:31> Skin: General skin exam: no rashes or lesions noted <BIRDIE Paredes - Last Filed: 04/20/20 19:31> Neuro: General: confusion <BIRDIE Paredes - Last Filed: 04/20/20 19:31> Cranial nerves: Yes CN's II-XII intact bilaterally and Yes Bilaterally intact EOM present <BIRDIE Paredes - Last Filed: 04/20/20 19:31> Extrem: General: Yes normal to inspection <BIRDIE Paredes - Last Filed: 04/20/20 19:31> Results Labs CBC and Chem 7: : 04/21/20 10:00 04/20/20 10:24 <BIRDIE Praedes - Last Filed: 04/20/20 19:31> Labs: Laboratory Results - last 24 hr 04/20/20 04/20/20 04/20/20 10:24 10:24 10:24 MCV 79.6 L MCH 24.2 L MCHC 30.4 L RDW 17.7 H Plt Count 502 H MPV 9.5 Immature Gran % (Auto) 0.4 Neut % (Auto) 79.8 H Lymph % (Auto) 14.2 L Evangeline % (Auto) 4.5 Eos % (Auto) 0.7 Baso % (Auto) 0.4 Lymph # (Auto) 1.6 Evangeline # (Auto) 0.5 Eos # (Auto) 0.1 Baso # (Auto) 0.0 Abs Immat Gran (auto) 0.05 H Absolute Neuts (auto) 9.0 H Absolute Nucleated RBC 0.000 Nucleated RBC % (auto) 0.0 Anion Gap 12 Estim Creat Clear Calc 106.4 Estimated GFR > 60 Random Glucose 132 H D Calcium 9.1 Total Bilirubin 0.2 AST 13 ALT 9 Alkaline Phosphatase 75 Total Protein 6.9 Albumin 4.1 Vitamin B12 276 Folate 5.5 TSH 0.81 COVID-19 ([facility]) COVID-19 Clin Com 04/20/20 10:51 MCV MCH MCHC RDW Plt Count MPV Immature Gran % (Auto) Neut % (Auto) Lymph % (Auto) Evangeline % (Auto) Eos % (Auto) Baso % (Auto) Lymph # (Auto) Evangeline # (Auto) Eos # (Auto) Baso # (Auto) Abs Immat Gran (auto) Absolute Neuts (auto) Absolute Nucleated RBC Nucleated RBC % (auto) Anion Gap Estim Creat Clear Calc Estimated GFR Random Glucose Calcium Total Bilirubin AST ALT Alkaline Phosphatase Total Protein Albumin Vitamin B12 Folate TSH COVID-19 ([facility]ICA) Negative COVID-19 Clin Com See Note <BIRDIE Paredes - Last Filed: 04/20/20 19:31> Assessment and Plan (1) Shortness of breath: Status: Acute <BIRDIE Paredes - Last Filed: 04/20/20 19:31> This is a 34-year-old female admitted to for management of psychosis Shortness of breath Intermittent shortness of breath not related to exercise. Lungs clear on exam. Slight drift in H/H. -will check iron studies -repeat CBC in a.m. Thank you for allowing us to participate in the care of this patient. This case was discussed with Dr. Singh <BIRDIE Paredes - Last Filed: 04/20/20 19:31>
--- NOTE | 2020-04-20 19:28 | HO.PSYCHPN ---
Subjective Subjective Date of Service: 04/20/20 Reason For Visit: Delusions-somatic Subjective Notes: Legal Status (Section VII) Interim History: Pt anxious, fearful, asking to go to the ER for medical eval- Reports feeling weak, difficulty breathing, unable to taste. Diagnostics ordered. Team reports poor sleep and intake over the weekend. Pt reports a decrease in symptoms later in the day. Declines medication. Discussed with pt that symptoms presented today are able to be treated. She declines any problem-I just need to be with my son. Review of Systems Constitutional: Reports difficulty sleeping, Reports poor appetite and Reports weakness Reports other (decrease in taste) Cardiovascular: Reports dyspnea Respiratory: Reports dyspnea Reports behavioral changes, Reports confusion and Reports weakness Psychiatric: Reports abnormal sleep pattern, Reports anxiety, Reports behavioral changes, Reports change in appetite, Reports confusion and Reports hallucinations Mental Status Exam Mental Status Exam Patient Appearance: Fatigued Patient Orientation: Person, Place, Time and Situation Level of Consciousness: Alert Patient Behavior: Guarded, Suspicious, Anxious and Distractible Mood Description: Suspicious, Anxious, Nervous and Apprehensive Affect Description: Suspicious, Anxious, Nervous and Apprehensive Patient Cognition Impaired: Yes Ability to Follow Directions: Poor Speech Pattern: Spontaneous Speech Memory Description: Intact Hallucinations: None (denies today) Delusions: Paranoid Ideation and Present (episcopal theme of repenting-she documents the time for each thought she repents.) Thought Process: Illogical, Distracted and Rumination Thought Content: positive for [place], positive for Obsessional Thoughts, positive for Circumstantial, positive for Perseveration, positive for Preoccupation and positive for Hypochondriasis Depressive Symptoms: Increased Anxiety, Insomnia, Difficulty Sleeping, Changes in Appetite, Increased Fatigue and Loss of Energy Judgement: Poor Diagnostics Vital Signs (24Hr): Vital Signs - 24 hr 04/20/20 05:20 04/20/20 10:30 04/20/20 10:31 Temperature 98.2 F Pulse Rate 84 Respiratory Rate 16 Blood Pressure 125/81 132/80 134/87 Pulse Oximetry 100 04/20/20 16:58 Temperature 97.6 F Pulse Rate 79 Respiratory Rate Blood Pressure 130/70 Pulse Oximetry Body Mass Index 23.7 Labs Results: 04/20/20 10:24 04/20/20 10:24 Labs: Laboratory Results - last 48 hr 04/20/20 04/20/20 04/20/20 10:24 10:24 10:24 WBC 11.2 H RBC 4.51 Hgb 10.9 L Hct 35.9 L MCV 79.6 L MCH 24.2 L MCHC 30.4 L RDW 17.7 H Plt Count 502 H MPV 9.5 Immature Gran % (Auto) 0.4 Neut % (Auto) 79.8 H Lymph % (Auto) 14.2 L [place] % (Auto) 4.5 Eos % (Auto) 0.7 Baso % (Auto) 0.4 Lymph # (Auto) 1.6 [place] # (Auto) 0.5 Eos # (Auto) 0.1 Baso # (Auto) 0.0 Abs Immat Gran (auto) 0.05 H Absolute Neuts (auto) 9.0 H Absolute Nucleated RBC 0.000 Nucleated RBC % (auto) 0.0 Sodium 139 Potassium 3.7 Chloride 104 Carbon Dioxide 27 Anion Gap 12 BUN 8 L Creatinine 0.61 Estim Creat Clear Calc 106.4 Estimated GFR > 60 Random Glucose 132 H D Calcium 9.1 Total Bilirubin 0.2 AST 13 ALT 9 Alkaline Phosphatase 75 Total Protein 6.9 Albumin 4.1 Vitamin B12 276 Folate 5.5 TSH 0.81 COVID-19 ([facility]) [employer] Com 04/20/20 10:51 WBC RBC Hgb Hct MCV MCH MCHC RDW Plt Count MPV Immature Gran % (Auto) Neut % (Auto) Lymph % (Auto) [place] % (Auto) Eos % (Auto) Baso % (Auto) Lymph # (Auto) [place] # (Auto) Eos # (Auto) Baso # (Auto) Abs Immat Gran (auto) Absolute Neuts (auto) Absolute Nucleated RBC Nucleated RBC % (auto) Sodium Potassium Chloride Carbon Dioxide Anion Gap BUN Creatinine Estim Creat Clear Calc Estimated GFR Random Glucose Calcium Total Bilirubin AST ALT Alkaline Phosphatase Total Protein Albumin Vitamin B12 Folate TSH COVID-19 (M[facility]NICA) Negative COVID-19 [employer] Com See Note Imaging Radiology Impressions: ITS Impressions Head CT 04/13/20 00:00 IMPRESSION: No evidence for acute intracranial injury. Automated exposure control (Care Dose) Adjustment of the mA and/or kv according to patient size (this includes techniques or standardized protocols for targeted exams where dose is matched to indication / reason for exam; i.e. extremities or head). Medications Medications Current Medications Generic Name Dose Route Start Last Admin Trade Name Freq PRN Reason Stop Dose Admin Acetaminophen 650 mg 04/09/20 19:03 Acetaminophen 325 Mg Tablet PO Q6H PRN Headache/Pain Mild Scale (1-3) Al Hydroxide/Mg Hydroxide 30 ml 04/09/20 19:03 Magnesium Hydrox/Alum Hydrox 30 Ml Oral.Susp PO Q6H PRN Heartburn/Nausea Hydroxyzine HCl 25 mg 04/09/20 19:03 Hydroxyzine Hcl 25 Mg Tablet PO BEDTIME PRN Anxiety Magnesium Hydroxide 30 ml 04/09/20 19:03 Milk Of Magnesia 30 Ml Oral.Susp PO DAILY PRN Constipation Olanzapine 5 mg 04/09/20 19:07 Olanzapine Odt 10 Mg Tab.Rapdis TRANSLINGU RQ6H PRN Psychosis Olanzapine 10 mg 04/14/20 21:00 04/19/20 20:48 Olanzapine 10 Mg Tablet PO Not Given BEDTIME EDGARDO Trazodone HCl 50 mg 04/09/20 19:03 Trazodone Hcl 50 Mg Tablet PO BEDTIME PRN Insomnia Allergies Allergies Allergy/AdvReac Type Severity Reaction Status Date / Time clindamycin Allergy Rash Verified 04/08/20 13:11 Latex, Natural Rubber Allergy Facial Verified 04/08/20 13:11 Swelling Assessment & Plan Assessment & Plan (1) Acute psychosis: Status: Acute Code(s): F23 - Brief psychotic disorder Assessment and Plan: Review with pt proceedings scheduled for 04/21. She verbalized understanding and thanks the team for caring for her, however she believes she just needs to go home . Diagnostics reviewed, encouraged pt regarding intake and rest, offered supplements which she declined as well. Greater than 50% of the session was spent on counseling and/or coordination of care Patient educated on: diagnosis, medication risk/benefits, therapeutic strategies and medical condition Informed Consent: does not understand and further education needed Reason for contiued inpatient stay Substantial Risk for: harm to self, inability to function and rapid decompensation
[2020-04-20 21:31] LABS: Iron 11 mcg/dL (30-160); Percent Iron Saturation 3 % (15-50); Total Iron Binding Capacity 365 mcg/dL (228-428); Unsaturated Iron Binding 354 ug/dL
[2020-04-20 21:51] LABS: Ferritin 2 ng/mL (10-122)
[2020-04-21 08:42] VITALS: BMI 24.7
[2020-04-21 10:09] LABS: Hematocrit 36.8 % (37-47); Mean Corpuscular HGB Conc 29.9 g/dl (31.0-35.0); Mean Corpuscular Hemoglobin 23.9 pg (27.0-33.0); Mean Corpuscular Volume 79.8 fL (80-98); Mean Platelet Volume 9.2 fL (9.4-12.3); Platelet Count 528 X10*3/uL (160-400); Red Blood Count 4.61 X10*6/uL (4.20-5.50); Red Cell Distribution Width 17.8 % (11.0-16.0); White Blood Count 12.2 X10*3/uL (4.8-10.8)
--- NOTE | 2020-04-21 10:54 | PM.EVENT ---
Event Note Date of Service: 04/21/20 Event Note: Follow-up note Patient seen yesterday at [facility] due to symptoms of shortness breath with and without activity On examination patient appeared pale in no respiratory distress Lungs clear to auscultation Heart regular Abdomen soft Extremities no edema Assessment and plan Symptomatic iron def anemia Patient noted to have drop in hematocrit from 39-36 with an MCV of 79 therefore obtain iron studies that are consistent with iron deficiency anemia ferritin of 2 and iron saturation of 3 Therefore recommend IV ferrilecet 125mg over 1 hour dc on po ferrous so4 bid with vit c 250mg bid outpt follow up with hematolgy for weekly cbc and further iv infusion as needed.
[2020-04-21 13:23] VITALS: BP 131/82; BP 132/82
[2020-04-21 13:24] VITALS: BP 143/88
[2020-04-21] MEDS: Sodium Ferric Gluconat/Sucrose 125 MG in 0.9 % Sodium Chloride 100 ML 100 MG IV (14:21)
--- NOTE | 2020-04-21 15:59 | PM.PSYDC ---
DS: Providers Provider Date of Service: 05/03/20 Date of admission: 04/09/20 19:04 Primary care physician: Dr. Chris Consults: 04/20/20 08:49 Consult to Hospitalist Routine Consulting Provider: Hospitalist Reason for consultation: difficulty breathing, weakness DS: Diagnosis Discharge Diagnosis (1) Acute psychosis: Status: Resolved Problem details: Pt was admitted on a Section XIIB with psychosis- responding to internal stimuli, thought blocking, focus on physical health and demanding of PET Scan. She had made previous ER visits with physical complaints which were ruled out and symptoms persisted [employer]. (2) Major depression with psychotic features: Status: Acute DS: Medications Discharge Medications Home Medications: Previous Rx's Medication Instructions Recorded albuterol sulfate 2 puff INHALATION Q6H PRN #6.7 g 04/08/20 naproxen 500 mg PO BID PRN #20 tab 04/08/20 Discharge Plan Discharge Anticipated Discharge Date/Time: 04/21/20 17:00 Patient Disposition: Home, Self-Care Referrals: [facility] [Other] (Referral submitted, they will contact you with appointments. Please call in a few days if you do not receive a call. *For therapy and psychiatry*) Javy Victor MD [Physician] - 04/30/20 2:15 pm Discharge Medications: Discontinued albuterol sulfate 90 mcg/actuation HFA aerosol inhaler 2 puff inhalation Q6H PRN (Reason: shortness of breath or wheezing) Qty: 6.7 RF: 0 naproxen 500 mg tablet 500 mg PO BID PRN (Reason: pain) Qty: 20 RF: 0 Discharge Orders: Discharge Order (Routine); Ordered 04/21/20 Ordered By: Marilyn Wilkerson Diet: advance to usual diet Activity on Discharge: As tolerated Discharge Date/Time: 04/21/20 17:25 Print Language: Spanish Visit Report Forms: Patient Portal Discharge page Care Plan Goals: You have declined all psychiatric treatment. We encourage you to reconsider as treatment may help to decrease your symptoms. Health Concerns: Anemia- Follow up with your primary care physician Plan of Treatment: You have declined all psychiatric treatment. We encourage you to reconsider as treatment may help to decrease your symptoms. Mental Status Exam Mental Status Exam Patient Appearance: Appropriate Patient Orientation: Person, Place, Time and Situation Level of Consciousness: Alert Patient Behavior: Appropriate Mood Description: Anxious Affect Description: Constricted Patient Cognition Impaired: No Ability to Follow Directions: Good Speech Pattern: Spontaneous Speech Memory Description: Intact Hallucinations: None (denied upon discharge) Delusions: Present (latter-day regarding repentance) Thought Process: Distracted Thought Content: positive for Circumstantial Depressive Symptoms: Increased Anxiety, Insomnia and Difficulty Sleeping Judgement: Fair Data Data Completed and Pending Completed studies during hospitalization [Text1]: 04/16/20 04/16/20 04/20/20 08:15 08:15 10:24 WBC 11.2 H RBC 4.51 Hgb 10.9 L Hct 35.9 L MCV 79.6 L MCH 24.2 L MCHC 30.4 L RDW 17.7 H Plt Count 502 H MPV 9.5 Immature Gran % (Auto) 0.4 Neut % (Auto) 79.8 H Lymph % (Auto) 14.2 L [place] % (Auto) 4.5 Eos % (Auto) 0.7 Baso % (Auto) 0.4 Lymph # (Auto) 1.6 [place] # (Auto) 0.5 Eos # (Auto) 0.1 Baso # (Auto) 0.0 Abs Immat Gran (auto) 0.05 H Absolute Neuts (auto) 9.0 H Absolute Nucleated RBC 0.000 Nucleated RBC % (auto) 0.0 Sodium Potassium Chloride Carbon Dioxide Anion Gap BUN Creatinine Estim Creat Clear Calc Estimated GFR Random Glucose Calcium Iron TIBC % Saturation Unsat Iron Binding Ferritin Total Bilirubin AST ALT Alkaline Phosphatase Total Protein Albumin Vitamin B12 341 25-OH Vitamin D Total 11.2 Folate 5.3 TSH 0.59 COVID-19 ([facility]) COVID-19 Clin Com 04/20/20 04/20/20 04/20/20 10:24 10:24 10:51 WBC RBC Hgb Hct MCV MCH MCHC RDW Plt Count MPV Immature Gran % (Auto) Neut % (Auto) Lymph % (Auto) [place] % (Auto) Eos % (Auto) Baso % (Auto) Lymph # (Auto) [place] # (Auto) Eos # (Auto) Baso # (Auto) Abs Immat Gran (auto) Absolute Neuts (auto) Absolute Nucleated RBC Nucleated RBC % (auto) Sodium 139 Potassium 3.7 Chloride 104 Carbon Dioxide 27 Anion Gap 12 BUN 8 L Creatinine 0.61 Estim Creat Clear Calc 106.4 Estimated GFR > 60 Random Glucose 132 H D Calcium 9.1 Iron 11 L TIBC 365 % Saturation 3 L Unsat Iron Binding 354 Ferritin 2 L Total Bilirubin 0.2 AST 13 ALT 9 Alkaline Phosphatase 75 Total Protein 6.9 Albumin 4.1 Vitamin B12 276 25-OH Vitamin D Total Folate 5.5 TSH 0.81 COVID-19 ([facility]) Negative COVID-19 Clin Com See Note 04/21/20 10:00 WBC 12.2 H RBC 4.61 Hgb 11.0 L Hct 36.8 L MCV 79.8 L MCH 23.9 L MCHC 29.9 L RDW 17.8 H Plt Count 528 H MPV 9.2 L Immature Gran % (Auto) Neut % (Auto) Lymph % (Auto) [place] % (Auto) Eos % (Auto) Baso % (Auto) Lymph # (Auto) [place] # (Auto) Eos # (Auto) Baso # (Auto) Abs Immat Gran (auto) Absolute Neuts (auto) Absolute Nucleated RBC 0.000 Nucleated RBC % (auto) 0.0 Sodium Potassium Chloride Carbon Dioxide Anion Gap BUN Creatinine Estim Creat Clear Calc Estimated GFR Random Glucose Calcium Iron TIBC % Saturation Unsat Iron Binding Ferritin Total Bilirubin AST ALT Alkaline Phosphatase Total Protein Albumin Vitamin B12 25-OH Vitamin D Total Folate TSH COVID-19 (M[facility]NICA) COVID-19 Clin Com 04/08/20 23:27 Urine clean catch - Clean Catch Midstream Urine Culture - Final Imaging Diagnostic Imaging Impressions Head CT 04/13/20 00:00 IMPRESSION: No evidence for acute intracranial injury. Automated exposure control (Care Dose) Adjustment of the mA and/or kv according to patient size (this includes techniques or standardized protocols for targeted exams where dose is matched to indication / reason for exam; i.e. extremities or head). DS: Summary Hospital Course Hospital Course: Pt admitted on a Section XIIB as she had made significant visits to ER with medical complaints, evaluation and work ups were negative and pt was demanding of more specific testing, namely PET Scan. She was found to be thought blocking, responding to internal stimuli and religiously focused. Team filed Section VII/VIII on 04/15/20. As her admission progressed she declined all psychiatric intervention, her thought blocking decreased, she was not a direct threat to herself or others, was not at imminent risk, but was not caring well for herself (attempting not to sleep or eat) except to accept medical assessment and treatment when she exhibited symptoms (accepted assessment and treatment for iron deficiency anemia). She was assigned an managing attorney, and symptoms were not enough to pursue the Section VII/VIII initially filed per legal consultation with both representatives. Status at Discharge Cognitive/behavioral status at discharge: alert, oriented, calm Functional status at discharge: independent ambulation Overall status at discharge: patient is back to baseline Time Spent with Patient Time attestation: Total time spent providing and/or coordinating discharge services: 35 Time spent: Greater than 30 minutes
--- NOTE | 2020-04-21 17:38 | PC.NURSE ---
discharge-this typewriters functional tester called yellow cab for patient for transportation home. when walking patient out the front door I pointed out the medical building that her appointment is with Dr. Victor. patient verbalized understanding. reports ''i want to go home'' ''i've been in the hospital long enough''
== END 2020-04-21 17:25 | disposition home or self-care (01) | DRG 751 ==
LOC: HO.ED 04-09 13:47 → HO.PM5 04-09 20:07
PROVIDERS: Clinical Nurse Specialist Psychiatric/Mental Health, Adult; Nurse Practitioner Primary Care; Physician Assistant Medical; Psychiatry & Neurology Psychiatry; Admitting Provider Psychiatry & Neurology Psychiatry; Emergency Provider Emergency Medicine; Visit Provider Psychiatry & Neurology Psychiatry
DX: F23 Brief psychotic disorder (principal); D50.9 Iron deficiency anemia, unspecified; F41.9 Anxiety disorder, unspecified; Z20.828 Contact with and (suspected) exposure to other viral communicable diseases
CPT/HCPCS: 0241U; 36415; 70450; 80051; 80053; 80307; 81001; 81025; 82306; 82565; 82607; 82728; 82746; 83540; 84443; 84520; 85025; 85027; 87086; 87635; 90792; 99231; 99232; 99233; 99285; J2916